=== PATIENT | female | born 1980 | race Caucasian/White ===

== ENCOUNTER 2021-10-17 09:59 | Emergency (ER) | payer OTHER, SELFPAY ==
--- NOTE | ~2021-10-17 | XR_ITS ---
EXAMINATION: XR chest 1V portable 10/17/2021 11:41 INDICATION: Covid infection 2 weeks ago. Weakness. PROCEDURE: 2 view chest COMPARISON: No prior studies for comparison. FINDINGS: The lungs are clear. The cardiomediastinal silhouette is within normal limits. There are no pleural effusions. There is no pneumothorax suspected. IMPRESSION: 1: NO ACUTE CARDIOPULMONARY DISEASE. Reviewed, dictated and finalized at location A. NICAL SUPPORT ENGINEER
[2021-10-17 10:05] VITALS: BP 124/82; PULSE 97; RESP 17; TEMP 36.6; O2SAT 100
--- NOTE | 2021-10-17 11:18 | ECG_ITS ---
Measurements Intervals [place] Rate: 80 P: 41 UT: 124 QRS: 45 QRSD: 89 T: 29 QT: 350 QTc: 406 Interpretive Statements SINUS RHYTHM NORMAL ECG Electronically Signed On 10-17-2021 18:09:14 ROLL SCALE WORKER by Mekhi Swanson D.O.
--- NOTE | 2021-10-17 11:28 | ED.WEAKNESS ---
HPI - Weakness General Chief complaint: Weakness <America Kaur PA-C - Last Filed: 10/17/21 13:45> Stated complaint: fatigue <MARK Dunbar Last Filed: 10/17/21 13:45> Time Seen by Provider: 10/17/21 10:29 <America Kaur PA-C - Last Filed: 10/17/21 13:45> Source: patient <MARK Dunbar Last Filed: 10/17/21 13:45> Mode of arrival: ambulatory <MARK Dunbar Last Filed: 10/17/21 13:45> Limitations: no limitations <MARK Dunbar Last Filed: 10/17/21 13:45> History of Present Illness HPI Narrative: This is a 40-year-old female that presents to the emergency department for generalized weakness. Reports she was diagnosed with coronavirus 2 weeks ago. She is not vaccinated. She was treated with albuterol and a steroid. This did relieve her chest discomfort and some of her shortness of breath. She has continued to be very fatigued. Does also still report a mild cough. Denies fever, chest pain, or lower extremity edema. <MARK Dunbar Last Filed: 10/17/21 13:45> Related Data Home medications: Home Medications Medication Instructions Recorded Confirmed albuterol sulfate INHALATION 10/17/21 10/17/21 benzonatate mg PO 10/17/21 prednisone 10/17/21 <America Kaur PA-C - Last Filed: 10/17/21 13:45> Allergies/Adverse reactions: Allergies Allergy/AdvReac Type Severity Reaction Status Date / Time guaifenesin Allergy Palpitation Verified 10/17/21 11:13 s Penicillins Allergy Unknown Verified 10/17/21 11:13 <MARK Dunbar Last Filed: 10/17/21 13:45> Review of Systems Review of Systems: CONSTITUTIONAL: Denies fever CARDIOVASCULAR: Denies chest pain, or edema. RESPIRATORY: Reports cough and dyspnea. NEUROLOGIC: Reports generalized weakness. <MARK Dunbar Last Filed: 10/17/21 13:45> All systems reviewed & are unremarkable except as noted in HPI and below <America Kaur PA-C - Last Filed: 10/17/21 13:45> [facility] Past Medical History Medical History: Medical History (Updated 10/17/21 @ 13:45 by America Kaur PA-C) No active medical problems <America Kaur PA-C - Last Filed: 10/17/21 13:45> Social History Social History: Social History (Updated 10/17/21 @ 11:31 by America Kaur PA-C) Smoking status: Never smoker <America Kaur PA-C - Last Filed: 10/17/21 13:45> Exam Narrative: GENERAL: Well-appearing, well-nourished, and in no acute distress. HEAD: Normocephalic, atraumatic. EYES: EOMI. ENT: Nares clear, no rhinorrhea or epistaxis. Mucous membranes moist. Oropharynx without tonsillar hypertrophy exudate or other lesions. Bilateral TMs pearly kenny non-bulging NECK: Supple. No adenopathy or masses. CHEST: Clear to auscultation. No respiratory distress. No wheezes rales or rhonchi HEART: Regular rate and rhythm. No murmur heard. Normal peripheral pulses. EXTREMITIES: Normal range of motion. No edema. SKIN: Warm, dry, no rash. NEURO: No focal deficits. Alert and oriented x3. PSYCH: Normal mood and affect <America Kaur PA-C - Last Filed: 10/17/21 13:45> Course FIELD INSPECTOR/PA Physician Supervision I did not see this patient nor was the care plan discussed with me. I was available for evaluation and consultation, I agree with the documentation <Erik Laboy MD - Last Filed: 10/17/21 13:48> Vital Signs Vital signs: Vital Signs Temperature 36.6 C 10/17/21 10:05 Pulse Rate 97 10/17/21 10:05 Respiratory Rate 17 10/17/21 10:05 Blood Pressure 124/82 10/17/21 10:05 Pulse Oximetry 100 10/17/21 10:05 Temperature 36.6 C 10/17/21 10:05 Pulse Rate 77 10/17/21 13:31 Respiratory Rate 15 10/17/21 13:31 Blood Pressure 116/83 10/17/21 13:31 Pulse Oximetry 98 10/17/21 13:31 <America Kaur PA-C - Last Filed: 10/17/21 13:45> Vital Signs Temperature 36.6 C 10/17/21 10:05 Pulse Rate 97 10/17/21 10:0
[2021-10-17 11:55] LABS: Basophils Percent Auto 0.1 % (0.2-1.2); Hemoglobin 14.2 g/dL (12.0-15.0); Immature Granulocyte Absolute 0.03 K/mm3 (0.00-0.031); Immature Granulocyte Percent A 0.4 % (0-0.5); Lymphocytes Percent Auto 8.3 % (18.3-44.2); Mean Corpuscular Volume 90.9 fl (80-100); Mean Platelet Volume 9.3 fl (7.4-10.4); Monocytes Absolute Auto 0.2 K/mm3 (0.1-0.6); Monocytes Percent Auto 2.9 % (2.6-8.5); Neutrophils Absolute Auto 6.4 K/mm3 (1.3-6.7); Neutrophils Percent Auto 88.3 % (45.5-73.1); Platelet Count Result 311 k/mm3 (150-375); Red Blood Count 4.73 M/mm3 (4.2-5.4); White Blood Count 7.2 K/mm3 (4.5-10.0)
[2021-10-17 12:01] VITALS: BP 133/82; PULSE 86; RESP 16; O2SAT 99
[2021-10-17 12:05] LABS: Prothrombin Time 13.3 Seconds (11.1-14.7)
[2021-10-17 12:06] LABS: Partial Thromboplastin Time 26.2 SECONDS (22.3-36.8)
[2021-10-17 12:08] LABS: D Dimer 0.35 ug/mL (<0.48)
[2021-10-17 12:09] LABS: Lactic Acid Reflex 1.5 mmol/L (0.7-2.1)
[2021-10-17 12:11] LABS: Alanine Aminotransferase 32 U/L (4-35); Albumin Level 4.9 g/dL (3.5-5.1); Alkaline Phosphatase 65 U/L (38-126); Anion Gap 8 mmol/L (8-16); Aspartate Amino Transferase 30 U/L (14-36); Blood Urea Nitrogen 5 mg/dL (7-17); CRP < 0.5 mg/dL (<1.0); Calcium 9.3 mg/dL (8.4-10.2); Carbon Dioxide 26 mmol/L (22-30); Chloride 106 mmol/L (98-107); Estimated CRCL calculation 75 ml/min; Estimated Glomerular Filt Rate > 60; Glucose 111 mg/dL (65-110); Lactate Dehydrogenase 387 U/L (313-618); Potassium 3.8 mmol/L (3.4-5.0); Sodium 140 mmol/L (137-145)
[2021-10-17 13:23] LABS: Thyroid Stimulating Hormone Reflex 0.678 uIU/mL (0.465-4.68)
[2021-10-17 13:31] VITALS: BP 116/83; PULSE 77; RESP 15; O2SAT 98
[2021-10-17 14:15] VITALS: BP 117/79; PULSE 80; RESP 16; O2SAT 98
== END 2021-10-17 14:20 | disposition home or self-care (01) ==
PROVIDERS: Physician Assistant; Emergency Provider Emergency Medicine
DX: R53.1 Weakness (principal); Z86.16 Personal history of COVID-19
CPT/HCPCS: 36415; 71045; 80053; 82728; 83605; 83615; 84443; 85025; 85380; 85610; 85730; 86140; 93005; 99284

== ENCOUNTER 2022-04-21 00:27 | Day surgery (SDC) | payer OTHER, SELFPAY ==
[2022-04-14 10:59] VITALS: BMI 26.6
--- NOTE | 2022-04-14 11:04 | PC.NURSE ---
Report to the Outpatient Waiting Room, entrance under the green pavilion located off [facility], at time 1230 on date 04/21/22. OR Time: 1430. - You and your visitor will be asked a series of questions to screen for COVID 19 for your protection. - Only one visitor is allowed at this time. - The patient visitor is requested to leave or wait in car when not with patient. - A mask is required within the hospital. Patients may have clear liquids (water, carbonated beverages, clear teas, apple juice) until 3 hours prior to surgery with a maximum of 20 ounces. - No food from midnight until time of surgery Take the following medications with a SIP of water the morning of surgery: NONE Medications to discontinue per physician: VITAMINS/SUPPLEMENTS Date to take last dose: 04/17/22 Please no make-up, nail indonesian, hairspray, perfume, deodorant, or body powder the day of surgery. No jewelry (including any body piercings) or valuables the day of surgery, leave them at home. Please take a shower or bath the night before, or the morning of, surgery with an antibacterial soap. Wear comfortable, loose fitting clothing. - Jewelry must be removed prior to entering the operating room. Rings and piercings that are not removed may be cut off. - The hospital will not accept responsibility for valuables. - Please leave all valuables, including medications, at home the day of surgery. If you are going home after surgery, a licensed courtesy van driver must drive you home. - NO public transportation without another adult. - We recommend that an adult stay with you for 24 hours following discharge. - We also recommend that you do not drive, make important decision, drink alcoholic beverages, or take any drugs that were not prescribed by your health care provider for at least 24 hours after your discharge time. Follow any additional instructions given to you from your surgeon. If you or anyone in your household have experienced Covid symptoms in the past week, please notify your surgeon or the nurse liaison at the phone number below for possible testing. Telephone instructions given to PT - MICHELLE FUENTES and asked if any additional questions and then verbalized understanding. Patient advised to call surgeon office or pre surgery nurse liaison [phone] if any additional questions.
--- NOTE | 2022-04-21 11:46 | PM.IMHP ---
H&P: HPI History of Present Illness Date/Time: 04/21/22 11:46 Chief Complaint: Heavy periods Narrative: 41 y/o who is finished with childbearing. Her plans to have a vasectomy. Her menses occur every 30 days and last 5-7 days each, with a lot of cramping and heavy flow. She is interested in surgical managment of her problem. Review of Systems Review of Systems: All systems reviewed & are unremarkable except as noted in HPI and below PMFSH Past Medical History Medical History No active medical problems Social History Social History Years smoked: 8 Smoking status: Former smoker Tobacco type: cigarettes Smoking end date: 09/12/07 Alcohol intake: never Substance use: never Substance use type: does not use Living arrangements: with family Spiritual care concerns: No Meds Home Medications and Allergies Home Medications Medication Instructions Recorded Confirmed Type ascorbic acid (vitamin C) 500 mg 500 mg PO DAILY 04/14/22 04/14/22 History tablet (Vitamin C) zinc acetate 25 mg (zinc) capsule 25 mg PO DAILY 04/14/22 04/14/22 History Allergies Allergy/AdvReac Type Severity Reaction Status Date / Time Penicillins Allergy Mild Hives Unverified 04/14/22 10:56 guaifenesin Allergy Palpitation Verified 04/14/22 10:56 s Exam Const: Orientation/consciousness: patient oriented x3 Other: Well-developed, well-nourished female in no acute distress. Neck: Thyroid: thyroid normal Lymphatic: no lymphadenopathy noted (in neck, axilla or inguinal nodes) Resp: Effort & Inspection: normal respiratory effort Auscultation: clear to auscultation bilaterally Cardio: Rate: regular rate Rhythm: regular rhythm Heart sounds: S1 normal heart sound present and S2 normal heart sound present GI: Other: ABD: Soft, nontender, nondistended. No guarding or rebound tenderness. No hepatosplenomegaly. : General: Yes no CVA tenderness Other: External genitalia: normal female hair distribution, without lesion. Urethral meatus: no lesion, non prolapsed. Bladder: no mass, nontender Vagina: well-estrogenized, without lesion or discharge. No cystocele or rectocele. Cervix: no lesion or discharge. Uterus: small, anteverted, freely mobile, nontender Adnexa: no mass or tenderness. Anus/perineum: no lesions, nontender Back/Spine/Pelvis: Back: no CVA tenderness Skin: General skin exam: normal color and no rashes or lesions noted Neuro: General: patient oriented x3 Extrem: Other: Extremities: nontender with no edema Psych: Mental Status: mental status grossly normal Affect: normal affect Assessment and Plan Assessment and plan (1) Menorrhagia: Code(s): N92.0 - Excessive and frequent menstruation with regular cycle Status: Acute Assessment and Plan: A: Menorrhagia. P: We have reviewed medical as well as surgical management options. She is interested in hysteroscopy, dilation and sharp curettage, and endometrial ablation. She understands risks of surgery to include risks of anesthesia, risks of pain, infection, bleeding, blood products, thromboembolic phenomena and damage to adjacent structures such as bowel, bladder, ureters, blood vessels and nerves. She understands endometrial ablation is not sufficient for contraception, and that pregnancies conceived afterward could be risky. She understands all these risks and elects to proceed with surgery.
[2022-04-21] MEDS: ACETAMINOPHEN 500 MG TABLET 1000 MG PO (12:38)
--- NOTE | 2022-04-21 13:10 | P.PNAN_ITS ---
Anes - Initial Pre Proc Eval Procedure: Operation Date: 04/21/22 14:30 Proposed Procedures p Hysteroscopy, Dilation and Curettage, Lissy Endometrial Ablation - Gee Peng MD Date/Time: 04/21/22 13:10 Surgeon: Gee Peng MD Pre Op Diagnosis: Irrg Bleeding Patient Data Age: 41 Gender: F Height: 1.75 m Weight: 82.8 kg Allergies Allergy/AdvReac Type Severity Reaction Status Date / Time Penicillins Allergy Mild Hives Verified 04/21/22 12:38 guaifenesin Allergy Palpitation Verified 04/21/22 12:38 s Home Medications Medication Instructions Recorded Confirmed Type ascorbic acid (vitamin C) 500 mg 500 mg PO DAILY 04/14/22 04/21/22 History tablet (Vitamin C) zinc acetate 25 mg (zinc) capsule 25 mg PO DAILY 04/14/22 04/21/22 History Patient hx anesthesia problems: none Family hx anesthesia problems: none Results Review: All pre-operative results and documents have been reviewed as part of the pre- operative evaluation. [facility] Past Medical History Medical History No active medical problems Social History Social History Years smoked: 8 Smoking status: Former smoker Tobacco type: cigarettes Smoking end date: 09/12/07 Alcohol intake: never Substance use: never Substance use type: does not use Living arrangements: with family Spiritual care concerns: No Anes - Eval Final PreProcedure Day of Procedure 04/21/22 13:10 Patient weight: overweight Airway: Mallampati scale class II ASA classification: II Anesthesia type and monitoring: general GIVS and standard monitoring Results Review: All pre-operative results and documents have been reviewed as part of the pre- operative evaluation. Informed Consent: The patient's anesthetic plan and its attendant risks and benefits were discussed with the patient/family/POA. Questions were solicited and answers provided to the satisfaction of the patient/family/POA.
[2022-04-21 13:30] VITALS: BP 116/74; PULSE 74; RESP 16; TEMP 37.1; O2SAT 100
[2022-04-21] MEDS: LACTATED RINGERS 1,000 ML 30 ML IV CONT (13:34)
--- NOTE | 2022-04-21 14:05 | WPDHPUPDATE1 ---
History and Physical Update Update Date/Time: 04/21/22 14:05 History and Physical has been reviewed, including an updated exam of the patient. There are NO changes in the patient's condition. Risks, benefits, and alternatives have been discussed and questions answered. Patient agrees to proceed with procedure.
--- NOTE | 2022-04-21 14:36 | W.PM.PROC2 ---
Procedure Note - Detailed Date of Procedure 04/21/22 Pre-op Diagnosis Menorrhagia Post-op Diagnosis Same Procedure Performed Hysteroscopy Dilation and sharp curettage Endometrial ablation Surgeon eGe Peng MD Anesthesia MAC and Local (1% lidocaine) Findings Uterus sounded to a depth of 10.5 cm with a cervical length of 3.5 cm. Both tubal ostia seen. Thick endometrial tissue. Also some irregularity of the contour of the endometrial cavity. Description of Procedure The patient was taken to the operating room where she was prepared and draped in the usual sterile fashion in the dorsal lithotomy position. The bladder was drained with a red rubber catheter. A sterile speculum was placed into the vagina. The anterior lip of the cervix was grasped with single-tooth tenaculum. Ten mL of 1% lidocaine was administered in a paracervical block. The cervix was then gently dilated using Hegar dilators until an 8 mm dilator could be passed. Hysteroscopy was performed using sterile saline as a distention medium. Findings are as noted above. Sharp curettage was then performed, and endometrial curettings were collected on a Telfa pad and passed off to be sent to pathology. Finally, the the Lissy device was advanced and endometrial ablation commenced without difficulty. The device was withdrawn and a second look was taken using the hysteroscope. Excellent coverage of the endometrial cavity was noted. The tenaculum was removed. Hemostasis was excellent. Sponge, lap, needle and instrument counts were correct. The patient was awakened and taken to the recovery room in stable condition. I was present and scrubbed through the entire procedure. Implants None Estimated Blood Loss 5 Drains No Packing No Pathology Yes (Endometrial curettings) Complications None Condition Stable Disposition PACU
[2022-04-21 14:40] VITALS: BP 127/76; PULSE 104; RESP 16; O2SAT 100
[2022-04-21 15:10] VITALS: BP 119/78; PULSE 70; RESP 16; O2SAT 100
== END 2022-04-21 15:25 | disposition home or self-care (01) ==
PROVIDERS: PCP Physician Assistant; Visit Provider Obstetrics & Gynecology
PROC: 0U5B8ZZ Destruction of Endometrium, Via Natural or Artificial Opening Endoscopic (ICD-10-PCS; CPT 58563; principal; 2022-04-21 14:30)
DX: N92.0 Excessive and frequent menstruation with regular cycle (principal); Z87.891 Personal history of nicotine dependence
CPT/HCPCS: 58563; 88305; A9270; J2250; J2405; J2704; J3010; J7030; J7120

== ENCOUNTER 2024-06-11 11:10 | Outpatient (CLI) | payer BC, SELFPAY ==
--- NOTE | 2024-06-11 | ECG_ITS ---
Test Date: 2024-06-11 11:55:02 Measurements Intervals [place] Rate: 78 P: 29 NE: 131 QRS: 36 QRSD: 88 T: 29 QT: 371 QTc: 424 Interpretive Statements SINUS RHYTHM NORMAL ECG No previous ECG available for comparison Electronically Signed On 06-11-2024 13:44:30 CDT by Mekhi Swanson D.O.
== END 2024-06-11 11:11 | disposition home or self-care (01) ==
LOC: ANHCARD 11:31
PROVIDERS: PCP Family Medicine; Visit Provider Physician Assistant
DX: R07.89 Other chest pain (principal)
CPT/HCPCS: 93005

== ENCOUNTER 2024-06-20 13:15 | Outpatient (CLI) | payer BC, SELFPAY ==
--- NOTE | 2024-06-20 | ECHO_ITS ---
Patient Info Name: Africa Jenkins Age: 43 years : 1980 Gender: Female Ht: 69 in Wt: 190 lbs BSA: 2.07 m2 HR: 65 bpm BP: 135 / 89 mmHg Heart Rhythm: Sinus Rhythm Technical Quality: Good Exam Date: 06/20/2024 1:48 PM Exam Location: Echo Lab Patient Status: Outpatient Admit Date: 06/20/2024 Staff Ordering Physician: DanielArabella PA-C Information Specialist: Caroline Damon RDCS Attending Provider: DanielArabella PA-C Exam Type: CA echo doppler color flow Study Info Indications - palpatation Complete two-dimensional, color flow and Doppler transthoracic echocardiogram is performed. Summary 1. Complete two-dimensional, color flow and Doppler transthoracic echocardiogram is performed. 2. Left ventricular chamber dimension is normal. 3. Left ventricular systolic function is normal, estimated at 60-65%. 4. The left ventricular diastolic function is normal. 5. E/e' 6 is not elevated. 6. No pulmonary hypertension, estimated pulmonary arterial systolic pressure is 34 mmHg. Left Ventricle E/e' 6 is not elevated. Left ventricular chamber dimension is normal. Left ventricular systolic function is normal, estimated at 60-65%. The left ventricular diastolic function is normal. Right Ventricle Right ventricular chamber dimension is normal. Right ventricular systolic function is normal. Left Atria Left atrial chamber dimension is normal. Right Atria Right atrial chamber dimension is normal. Aortic Valve The aortic valve is trileaflet. There is no aortic valve stenosis. There is no aortic valve regurgitation. Pulmonic Valve There is no pulmonic regurgitation. Mitral Valve There is no mitral valve stenosis. There is no mitral valve regurgitation. Tricuspid Valve There is no tricuspid valve regurgitation. No pulmonary hypertension, estimated pulmonary arterial systolic pressure is 34 mmHg. Pericardium/Pleural There is trivial pericardial effusion. Inferior Vena Cava Normal inferior vena cava with >50% collapse upon inspiration consistent with normal right atrial pressure, 5 mmHg. Aorta The aortic root size at the sinus of Valsalva is normal. Left Ventricular Outflow Tract Name Value Normal LVOT 2D LVOT Diameter 1.8 cm LVOT Doppler LVOT Peak Gradient 3 mmHg LVOT Mean Gradient 2 mmHg LVOT VTI 18 cm LVOT VTI/AV VTI Ratio 0.8 LVOT Stroke Volume 44 ml LVOT CO 3.3 l/min LVOT CI 1.6 l/min/m2 Pulmonic Valve Name Value Normal PV Doppler PV Peak Gradient 4 mmHg Mitral Valve Name Value Normal MV Doppler
== END 2024-06-20 13:16 | disposition home or self-care (01) ==
PROVIDERS: PCP Physician Assistant; Visit Provider Physician Assistant
DX: R07.89 Other chest pain (principal)
CPT/HCPCS: 93306

== ENCOUNTER 2024-06-25 10:33 | Outpatient (CLI) | payer BC, SELFPAY ==
--- NOTE | 2024-06-25 | EST_ITS ---
Patient Info Name: Africa Jenkins Age: 43 years : 1980 Gender: Female Ht: 69 in Wt: 200 lbs BSA: 2.12 m2 HR: 76 bpm BP: 122 / 80 mmHg Heart Rhythm: Sinus Rhythm Exam Date: 06/25/2024 10:58 AM Exam Location: Echo Lab Patient Status: Outpatient Admit Date: 06/25/2024 Staff Ordering Physician: Dion, Arabella FLORES Attending Provider: Dion, Arabella FLORES Exercise Technologist: Valerie Tuttle CT Exercise Physician: Mekhi Swanson DO Exam Type: CA stress test treadmill Study Info Indications R00.2 - Palpitations A treadmill exercise stress test was performed. Summary 1. 1. Negative Gee exercise stress test for ischemic ST changes by ECG criteria. 2. 2. Good functional capacity, achieving 10 METs of workload. 3. 3. Appropriate HR response to exercise. 4. 4. Appropriate HR recovery at 1 minute post exercise. 5. 5. No imaging with stress testing. 6. 6. Patient informed of the above results. Protocol: Gee Stress ECG Details Stage: REST Duration (min): 0 min : 52 sec Speed (mph): 0.0 Grade (%): 0 HR (bpm): 84 SBP (mmHg): 122 DBP (mmHg): 80 METS: --- Stage: REST Duration (min): 5 min : 14 sec Speed (mph): 0.0 Grade (%): 0 HR (bpm): 88 SBP (mmHg): 122 DBP (mmHg): 80 METS: --- Stage: STAGE 1 Duration (min): 1 min : 0 sec Speed (mph): 1.7 Grade (%): 10 HR (bpm): 107 SBP (mmHg): 122 DBP (mmHg): 80 METS: --- Stage: STAGE 1 Duration (min): 2 min : 0 sec Speed (mph): 1.7 Grade (%): 10 HR (bpm): 113 SBP (mmHg): 122 DBP (mmHg): 80 METS: --- Stage: STAGE 1 Duration (min): 3 min : 0 sec Speed (mph): 1.7 Grade (%): 10 HR (bpm): 113 SBP (mmHg): 146 DBP (mmHg): 77 METS: --- Stage: STAGE 2 Duration (min): 1 min : 0 sec Speed (mph): 2.5 Grade (%): 12 HR (bpm): 129 SBP (mmHg): 146 DBP (mmHg): 77 METS: --- Stage: STAGE 2 Duration (min): 2 min : 0 sec Speed (mph): 2.5 Grade (%): 12 HR (bpm): 136 SBP (mmHg): 165 DBP (mmHg): 78 METS: --- Stage: STAGE 2 Duration (min): 3 min : 0 sec Speed (mph): 2.5 Grade (%): 12 HR (bpm): 141 SBP (mmHg): 165 DBP (mmHg): 78 METS: --- Stage: STAGE 3 Duration (min): 1 min : 0 sec Speed (mph): 3.4 Grade (%): 14 HR (bpm): 151 SBP (mmHg): 176 DBP (mmHg): 82 METS: --- Stage: STAGE 3 Duration (min): 2 min : 0 sec Speed (mph): 3.4 Grade (%): 14 HR (bpm): 155 SBP (mmHg): 176 DBP (mmHg): 82 METS: --- Stage: STAGE 3 Duration (min): 2 min : 0 sec Speed (mph): 3.4 Grade (%): 14 HR (bpm): 155 SBP (mmHg): 176 DBP (mmHg): 82 METS: --- Stage: RECOVERY Duration (min): 0 min : 59 sec Speed (mph): 0.0 Grade (%): 0 HR (bpm): 125 SBP (mmHg): 178 DBP (mmHg): 79 METS: --- Stage: RECOVERY Duration (min): 1 min : 59 sec Speed (mph): 0.0 Grade (%): 0 HR (bpm): 107 SBP (mmHg): 178 DBP (mmHg):
== END 2024-06-25 10:34 | disposition home or self-care (01) ==
PROVIDERS: PCP Physician Assistant; Visit Provider Physician Assistant
DX: R07.89 Other chest pain (principal)
CPT/HCPCS: 93017

== ENCOUNTER 2024-10-12 09:12 | Outpatient (CLI) | payer OTHER, SELFPAY ==
--- NOTE | ~2024-10-12 | MM_ITS ---
EXAMINATION: MM screening leanna BI w jorje HISTORY: Screening TECHNIQUE: Craniocaudal and mediolateral oblique 3-D tomosynthesis images were obtained and synthetic 2-D images were generated. CAD analysis was submitted and interpreted. COMPARISON: No prior mammogram is available for comparison at this institution. BREAST PARENCHYMAL COMPOSITION: Not dense: There are scattered areas of fibroglandular density. FINDINGS: There is no evidence of suspicious mass, calcification, or architectural distortion to sugg est malignancy in either breast. There has been no suspicious interval change. IMPRESSION: 1. No mammographic evidence of malignancy. 2. Recommend routine screening mammography in one year. BI-RADS Category 1: Negative Reviewed, dictated and finalized at location A. MIXER
--- OUTSIDE RECORDS SUMMARY | 2024-10-12 09:32 | XMS_ITS | Data Portability ---
Author Organization [facility] Address [address] [place] [address] Care Team Providers Care Nurse Paralegal Name Role Phone ARABELLA SINGH Primary Care Provider Unavailab le Assessment No assessment recorded. Plan of Treatment Reminders Order Date Submit Date Provider Last Modified By Organization Details Last Modified Time Details Appointments None recorded. Lab TSH + free T4, serum 2023 024 [place], [address], Abhishek Hoskins, [place], [address], 4 09:28:40 insulin, serum 2023 024 [facility], [address], Abhishek Hoskins, [place], [address], 4 16:27:10 T3, free, serum or plasma 2023 024 [facility], [address], [place], [address], 4 16:27:10 noninvasiv e colorectal cancer DNA + occult blood screening, QL, stool 2023 024 [facility] (Cologuard Orders Only), [address], [address], [place], [address], 4 18:45:40 lipid panel, serum 2023 024 [facility], [address], Abhishek Hoskins, [place], [address], 4 16:27:09 CMP, serum or plasma 2023 024 [facility], [address], Abhishek Hoskins, [place], [address], 4 16:27:09 HbA1c (hemoglobi n A1c), blood 2023 024 [facility], [address], Abhishek Hoskisn, [place], [address], 4 16:27:09 iron + TIBC + ferritin, serum 2023 024 [facility], [address], Abhishek A, [place], [address], 4 09:28:40 CBC w/ auto diff 2023 024 [facility], [address], Abhishek A, [place], [address], 4 16:27:09 vitamin B12 + folate, serum or blood 2023 024 [facility], [address], Abhishek A, [place], [address], 4 16:27:[address] referral - trivial pericardia l effusion noted on Jun ECHO. pt remains symptomati c. f/u ECHO ordered to re-eval 2024 025 [facility], [address], [address], [place], [address], 5 12:27:04 Procedures None recorded. Surgeries None recorded. Imaging US, echocardio gram, transthora cic, complete, w/ color flow - NISHANT scheduling if possible need prior to planned diagnostic colonoscop y that is Jun 26. 2023 024 [facility] ([facility]), [address], [place], [address], 4 16:40:41 exercise stress test - NISHANT scheduling if possible need prior to planned diagnostic colonoscop y that is Jun 26. 2023 024 [facility] ([facility]iology [facility]), [address], [place], [address], 4 14:36:40 electrocar diogram 2023 024 [facility] ([facility]), [facility] [address] [place] [address], [phone], 4 21:00:08 US, echocardio gram, transthora cic, complete, w/ color flow 2024 025 [facility] ([facility]), [address] [place] [address] [place] [address], [id number], 5 05:00:25 Medication Orders naproxen 500 mg tablet 2024 025 [id number], [address] [place] [address], [id number], 5 18:04:17 Patient TargetsNo targets recorded. Patient InstructionsNo instructions recorded. 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 pt remains symptomatic. f/u ECHO ordered to re-eval Referring Physician: Arabella Singh, Internal Medicine, Encounter Date: 09/14/2024 Results Created Date Observation Date Name Description Value Unit Range Abnormal Flag Note LastModifiedBy Organization Detail LastModifiedTime 05/07/20 24 05/07/2024 COLOG UARD cologuard result reportable Positi ve negati ve abnormal POSIT JIMMY TEST RESUL T. A posit jimmy Colog uard resul t shoul d be follo wed with a colon oscop y or visua l exami natio n of the colon . The jeanne l value (refe rence range ) for this assay is negat jimmy. TEST DESCR IPTIO N: [place] site algor ithmi c yael sis of stool DNA-b darian casanova with hemog lobin immun oassa y. Quant itati ve value s of indiv idual bioma rkers are not repor table and are not assoc iated with indiv idual bioma rker resul t refer ence range s. Colog uard is inten ded for color ectal cance r scree wallace of adult s of eithe r sex, 45 years or older , who are at [facility] for color ectal cance r (CRC) . Colog uard has been appro keke for use by the U.[place]. FDA. The perfo rmanc e of Colog uard was estab lishe d in a cross secti onal study of [facility] adult s aged 50-84 . Colog uard perfo rmanc e in patie nts ages 45 to 49 years was estim ated by sub-g roup yael sis of near- age group s. Colon oscop ies perfo rmed for a posit jimmy resul t may find as the most clini stephanie signi don t lesio n: color ectal cance r [4.0% ], advan hema adeno ma (incl uding sessi le dinh jaron polyp s great er than or equal to 1cm diame ter) [20%] or non- advan hema adeno ma [31%] ; or no color ectal neopl dalila [45%] . These estim ates are deriv ed from a prosp ectiv e cross -sect ional scree wallace study of 10,00 0 indiv idual s at [facility] risk for color ectal cance r who were scree linda with both Colog uard and colon oscop y. (Lara Liu al, N Engl J Med 2014; 370(1 4):12 86-12 97.) Colog uard may produ ce a false negat jimmy or false posit jimmy resul t (no color ectal cance r or preca ncero us polyp prese nt at colon oscop y follo w up). A negat jimmy Colog uard test resul t does not guara ntee the absen ce of CRC or advan hema adeno ma (pre- cance r). The curre nt Colog uard scree wallace inter beverley is every 3 years . ([place] Cance r Socie ty and U.S. Multi -Soci ety Task Force ). Colog uard perfo rmanc e data in a 10,00 0 patie nt pivot al study using colon oscop y as the refer ence metho d can be acces sed at the follo wing locat ion: www.e xactl abs.c om/re sults . Addit ional descr iptio n of the Colog uard test proce ss, warni ngs and preca ution s can be found at www.c ologu elinor.c om. Not Available [facility] (Cologuard Orders Only) [address], [place], [address], 05/10/2024 18:45:40 06/11/20 24 06/11/2024 elect paulette garcia am No observ ation record ed. [facility] ([facility]) [address] [place] [address] [place] [address], [phone], 06/12/2024 10:48:12 06/29/20 24 06/20/2024 US, echoc ardio gram, trans thora cic, compl ete, w/ color flow No observ ation record ed. [address] [place] [address], [address], 07/01/2024 17:22:51 07/04/20 24 06/25/2024 exerc ise stres s test No observ ation record ed. [facility] ([facility]) [address] [place] [address] [place] [address], [phone], 07/12/2024 16:49:54 Result Notes None recorded. Procedures Surgical History None recorded. Imaging Results Imaging Date Name Status LastModified by Organization Details LastModified Time 06/11/2024 electrocardiogram completed [facility] (Cardiology & Em[facility]) [address], [address], 06/12/2024 10:48:12 06/20/2024 US, echocardiogram, transthoracic, complete, w/ color flow completed [facility] [address], [address], 07/01/2024 17:22:51 06/25/2024 exercise stress test completed [facility] (Cardiology & Emg) [address], [address], 07/12/2024 16:49:54 Procedure Notes None recorded. Medical Equipment None Reported. Allergies Allergen ID Allergen Name Allergen Category Reaction Reaction Severity Criticality Documentation Date Start Date Code Code System Note Provider Name and Address Organization Details Recorded Time [id number] Product containin g penicilli n and antibioti c (product) medicatio n vomiting Not available Not available 12/19/2023 57485 05 SNOMED Not Available Not Available Not Available Medications Name Sig Start Date Stop Date Status Note LastModified by Organization Details LastModified Time cefuroxime axetil 500 mg tablet TAKE 1 TABLET BY MOUTH EVERY 12 HOURS FOR 10 DAYS 06/08 completed Not Available Not Available Not Available naproxen 500 mg tablet Take 1 tablet twice a day by oral route with meal(s). 2024 active Not Available Not Available Not Avai lable Vitals Date Recorded Body weight Provider Name an d Address Organization Details Last Updated DateTime 12/19/2023 44776.4 g SARAH [place] [facility] 12/19/2023 11:55:06 Date Recorded Body mass index (BMI) Body height Provider Name and Address Organization Details Last Updated DateTime 12/19/2023 30.6 kg/m2 176.53 cm SARAH Madrid [facility] 04/2024 11:55:13 Date Recorded Heart rate Provider Name an d Address Organization Details Last Updated DateTime 12/19/2023 92 /min SARAH Madrid [facility] 12/19/2023 12:00:07 Date Recorded Oxygen saturation Oxygen saturation in Arterial blood by Pulse oximetry Provider Name and Address Organization Details Last Updated DateTime 12/19/2023 98 % 98 % Jo Bates [place] [facility] 12/19/2023 12:00:09 Date Recorded Body temperature Provider Name a nd Address Organization Details Last Updated DateTime 12/19/2023 97.9 [degF] Jo Bates MA [facility] 12:00:13 Date Recorded Body height Provider Name an d Address Organization Details Last Updated DateTime 06/08/2024 176.53 cm Katia Baron [place] [facility] 2023 10:44:49 Date Recorded Body mass index (BMI) Body weight Provider Name and Address Organization Details Last Updated DateTime 06/08/2024 29.1 kg/m2 75362.83 g Katia Baron [place] [facility] 06/08/2024 10:51:00 Date Recorded Respiratory rate Provider Name a nd Address Organization Details Last Updated DateTime 06/08/2024 18 /min Katia Baron [place] [facility] 06/08/2024 10:51:02 Date Recorded Oxygen saturation Oxygen saturation in Arterial blood by Pulse oximetry Provider Name and Address Organization Details Last Updated DateTime 06/08/2024 97 % 97 % Katia Baron [place] [facility] 06/08/2024 10:53:27 Date Recorded Heart rate Provider Name an d Address Organization Details Last Updated DateTime 06/08/2024 88 /min Katia Baron [place] [facility] 2023 10:53:31 Date Recorded Body height Provider Name an d Address Organization Details Last Updated DateTime 09/14/2024 176.53 cm Katia Baron MA [facility] 2024 11:53:51 Date Recorded Body mass index (BMI) Body weight Provider Name and Address Organization Details Last Updated DateTime 09/14/2024 29.7 kg/m2 19124.84 g Katia Baron MA [facility] 09/14/2024 11:55:21 Date Recorded Oxygen saturation Oxygen saturation in Arterial blood by Pulse oximetry Provider Name and Address Organization Details Last Updated DateTime 09/14/2024 99 % 99 % Katia Baron [place] [facility] 09/14/2024 11:57:08 Date Recorded Heart rate Provider Name an d Address Organization Details Last Updated DateTime 09/14/2024 99 /min Katia Baron [place] [facility] 2024 11:57:12 Date Recorded Systolic blood pressure Diastolic blood pressure Provider Name and Address Organization Details Last Updated DateTime 12/19/2023 110 mm[Hg] 80 mm[Hg] Jo Bates [place] [facility] 12/19/2023 11:59:09 Date Recorded Systolic blood pressure Diastolic blood pressure Provider Name and Address Organization Details Last Updated DateTime 12/19/2023 120 mm[Hg] 80 mm[Hg] DARION Arzate Attn: Accounting[address] [place], [address], [place] [facility] 12/19/2023 12:46:24 Date Recorded Systolic blood pressure Diastolic blood pressure Provider Name and Address Organization Details Last Updated DateTime 06/08/2024 118 mm[Hg] 72 mm[Hg] Katia Baron [place] [facility] 06/08/2024 10:54:47 Date Recorded Systolic blood pressure Diastolic blood pressure Provider Name and Address Organization Details Last Updated DateTime 06/19/2024 120 mm[Hg] 80 mm[Hg] DARION Arzate Attn: [address] [place], [address], [place] [facility] 06/19/2024 09:21:11 Date Recorded Systolic blood pressure Diastolic blood pressure Provider Name and Address Organization Details Last Updated DateTime 09/14/2024 130 mm[Hg] 82 mm[Hg] Katia Baron [place] [facility] 09/14/2024 11:58:19 Date Recorded Systolic blood pressure Diastolic blood pressure Provider Name and Address Organization Details Last Updated DateTime 09/14/2024 118 mm[Hg] 84 mm[Hg] DARION Arzate Attn: [address] [place], [address], [place] [facility] 09/14/2024 12:18:00 Date Recorded Systolic blood pressure Diastolic blood pressure Provider Name and Address Organization Details Last Updated DateTime 09/14/2024 120 mm[Hg] 80 mm[Hg] DARION Arzate Attn: [address] [facility], [place], [address], [facility] 09/14/2024 12:19:21 Social History Question Answer Notes LastModified by Organizat ion Details LastModified Time Tobacco Smoking Status Never Smoker Katia Baron [facility], [facility] 06/08/2024 10:52:01 What Is Your Level Of Alcohol Consumption? None Information not available 12/19/2023 Are You Blind Or Do You Have Difficulty Seeing? No Information n ot available 06/08/2024 What Is Your Level Of Caffeine Consumption? None Information not available 12/19/2023 In The 14 Days Before Symptom Onset, Have You Had Close Contact With A Laboratory-confirm ed COVID-19 While That Case Was Ill? No Information n ot available 06/08/2024 In The 14 Days Before Symptom Onset, Have You Had Close Contact With A Person Who Is Under Investigation For COVID-19 While That Person Was Ill? No Information not available 06/08/2024 Have You Been To An Area Known To Be High Risk For COVID-19? No Information not available 06/08/2024 Are You Deaf Or Do You Have Serious Difficulty Hearing? No Information not available 06/08/2024 What Type Of Diet Are You Following? REGULAR Information n ot available 06/08/2024 Are There Any Guns Present In Your Home? No Information not available 06/08/2024 What Was The Date Of Your Most Recent Tobacco Screening? 09/14/2024 Information not available 09/14/2024 Do You Use Your Seat Belt Or Car Seat Routinely? Yes Information not available 06/08/2024 Do You Have Smoke And Carbon Monoxide Detectors In Your Home? Yes Information not available 06/08/2024 How Much Tobacco Do You Smoke? No Information not available 12/19/2023 Do You Use Any Illicit Or Recreational Drugs? No Information not available 12/19/2023 Do You Use Sunscreen Routinely? Yes Information not available 06/08/2024 Has Tobacco Cessation Counseling Been Provided? No Information not available 12/19/2023 How Many Years Have You Smoked Tobacco? 0 Information not available 06/08/2024 Do You Or Have You Ever Used Any Other Forms Of Tobacco Or Nicotine? No Information not available 12/19/2023 Sex: Female Functional Status Question Answer Note LastModified by Organizat ion Details LastModified Time Are you able to care for yourself? Yes Information not available 06/08/2024 What is your exercise level? Occasional Information not available 06/08/2024 Mental Status None recorded. Family History Relationship Description Onset Age of this Age Resolved Age Notes LastModified by Organization Details LastModified Time Father Malignant neoplasm of skin [email or web address] Not available 2023 12:49:58 Father Diverticulit is dmilesma Not available 2023 12:50:16 Father Heart disease [email or web address] Not available 2023 10:51:42 Mother Diverticulit is dmilesma Not available 2023 12:50:16 Sister Heart disease tcarterma Not available 2023 10:51:42 Maternal Aunt Heart disease tcarterma Not available 2023 10:51:42 Medical History Condition Response Coronary Artery Disease N Other N Atrial Fibrillation N High Blood Pressure N Depression N COPD N Blood Clots N Anxiety Disorder Y Muscle, Joint, or Bone Problems N Acid Reflux (GERD) N Cancer N Stroke N High Cholesterol N Liver Disease N Headaches N Kidney or Bladder Problems N Thyroid Problems N GI Problems N Skin Problems N Anemia Y Heart Attack (NC) N Diabetes N Seizures/Epilepsy N Asthma N Allergies Y Hepatitis N Heart Failure N Osteoporosis N Gynecological History Statement/Question Response Menses Monthly N Obstetrics History GPAL:G 0 P 0 0 0 0 Past Encounters Encounter ID Performer Location Encounter Start Date Encounter Closed Date Diagnosis/Indication Diagnosis SNOMED-CT Code Diagnosis ICD10 Code Diagnosis Note [id number] DARION Arzate [facility] - Jace Nguyen [address] [place] [address] 12/19/2023 11:40:57 12/19/2023 12:48:19 Adult health examination 950713842 Z00.00 annual wellness completed. Routine fasting labs ordered. Cholesterol screening 27 5862887 Z13.220 fasting lipids are due Diabetes nick mathisitus screening 618321248 Z13.1 screening ordered for a1c Screening for malignant neoplasm of colon 717858778 Z12.11 pt opts for cologuard screening method. Iron defic iency anemia 94002391 D50.9 screening iron studies and b12/folate ordered. Weight gain 2358669 R63. 5 screening thyroid panel and insulin. [id number] DARION Arzate [facility] [address] [place] [address] 06/08/2024 10:41:36 06/08/2024 11:48:01 Atypical chest pain 401004428 R07.89 Refer for exercise treadmill stress testing with atypical chest pain report. EKG in the office is stable. Palpitations 10781176 R0 0.2 Persistent paroxysmal palpitatio ns. Check a baseline echocardio gram with Doppler to evaluate structure and ejection fraction and chamber size. [id number] DARION Arzate [facility] [address] [place] [address] 09/14/2024 11:50:05 09/14/2024 12:24:07 Pericardial effusion 240682048 I31.39 Trivial pericardia l effusion noted on her echocardio gram this fall. We will repeat complete echo with Doppler to monitor for stability and improvemen t. Patient also would like to consult with a cardiologi st regarding this. Atypical chest pain 1025 [address]9260 R07.89 Patient has atypical chest pain is consistent with pleuritic component perhaps a pleurisy. We will trial naproxen 500 mg twice daily for 10 days to see if this brings any improvemen t in an inflammato ry type chest pain. Patient has an underlying concern for pericardit is and if she had that and if that was the underlying cause of her trivial pericardia l effusion. Health Concerns Section Related Observation LastModified by Organization Detai ls LastModified Time None Recorded Concern Status LastModified by Organization Details LastModified Time None Recorded Advance Directives Directive None Recorded Payers Encounter Date Sequence Insurance Name Policy Number Policy Whiting Covered Member ID Whiting Member ID Guarantor Name 12/19/2023 1 [place] [id number] Edison Jenkins [id number] Arfica Jenkins 06/08/2024 1 [place] [id number] Edison Jenkins [id number] Africa Jenkins 09/14/2024 1 [facility] [id number] Edison Jenkins [id number] Africa Jenkins Notes Date Note Type Note Provider Name and Address Organization Details Recorded Time 4 text/html Pt is here to establish with new PCP. no acute complaints. pt is interested in screening labs and any testing needed at her age. She has some weight gain she would like labs for and also a hx of iron deficieny anemia reported that she would like screened for now. DARION Arzate Attn: [address]ing[address] [place], [address], [facility] 01/07/2024 23:53:59 4 text/html Angina/Chest PainReported bypatient.Location:chest; radiates to the left arm Quality:pressure;heavines s Severity:moderate Duration:lasts minutes Onset/Timing:started weeks ago Context:exertional;at rest;occurs with emotional stress Alleviating Factors:nothing gives relief Aggravating Factors:worse with activity;worse with stress/emotional upset Associated Symptoms:chest discomfort;shortness of breath;exertional dyspnea;fatigue;palpitati onsNotes:discuss heart issues, states that she has noticed some pain and pressure in her chest and some irregular heart palpitations/flutters, some shortness of breath coming and going, states that it started May 24, states that this week hit has been more consistent. DARION Arzate Attn: Accounting[address] [place], [address], [facility] 06/19/2024 09:21:28 5 text/html PalpitationsReported bypatient.Notes:Patient reports she is noticing some palpation of the heart, worse at night. Patient is also reporting she has some chest pain anteriorly that is not related to any stress or anxiety or exertion. Just generalized slight discomfort which waxes and wanes. Upon reviewing her echocardiogram with her there were some trivial pericardial effusion that was noted in the body of the echo report but not in the summary. We discussed the fact that this may have been from a viral illness prior to testing. DARION Arzate Attn: Accounting[address] [place], [address], [facility] 10/07/2024 18:06:33 OBGyn Episode No OBEpisode recorded.
== END 2024-10-12 09:13 | disposition home or self-care (01) ==
LOC: ANHIMG 09:14
PROVIDERS: PCP Physician Assistant; Visit Provider Obstetrics & Gynecology
DX: Z12.31 Encounter for screening mammogram for malignant neoplasm of breast (principal)
CPT/HCPCS: 77063; 77067

== ENCOUNTER 2024-10-23 00:56 | Day surgery (SDC) | payer OTHER, SELFPAY ==
[2024-06-05 14:31] VITALS: BMI 25.9
[2024-10-08 10:59] VITALS: BMI 29.6
--- OUTSIDE RECORDS SUMMARY | 2024-10-23 00:59 | XMS_ITS | Data Portability ---
Author Organization [facility] Jennyfer [facility] Address [address] [place] [address] Care Team Providers Care Chief Of Vital Statistics Name Role Phone ARABELLA SINGH Primary Care Provider Unavailab le Assessment No assessment recorded. Plan of Treatment Reminders Order Date Submit Date Provider Last Modified By Organization Details Last Modified Time Details Appointments None recorded. Lab TSH + free T4, serum 2023 024 [facility], [address], Abhishek Hoskins, [place], [address], 4 09:28:40 insulin, serum 2023 024 [facility], [address], Abhishek Hoskins, [place], [address], 4 16:27:10 T3, free, serum or plasma 2023 024 [facility], [address], [place], [address], 4 16:27:10 noninvasiv e colorectal cancer DNA + occult blood screening, QL, stool 2023 024 [facility] (Cologuard Orders Only), [address], [address], [place], [address], 4 18:45:40 lipid panel, serum 2023 024 [facility], [address], Abhishek Hoskins, [place], [address], 4 16:27:09 CMP, serum or plasma 2023 024 [facility], [address], Abhishek Hoskins, [place], [address], 4 16:27:09 HbA1c (hemoglobi n A1c), blood 2023 024 [facility], [address], Abhishek Hoskins, [place], [address], 4 16:27:09 iron + TIBC + ferritin, serum 2023 024 [email or web address], [address], Abhishek A, [place], [address], 4 09:28:40 CBC w/ auto diff 2023 024 [facility], [address], Abhishek A, [place], [address], 4 16:27:09 vitamin B12 + folate, serum or blood 2023 024 [facility], [address], Abhishek A, [place], [address], 4 16:27:[address] referral - trivial pericardia l effusion noted on Jun ECHO. pt remains symptomati c. f/u ECHO ordered to re-eval 2024 025 [facility], [address], [address], [place], [address], 5 12:27:04 Procedures None recorded. Surgeries None recorded. Imaging US, echocardio gram, transthora cic, complete, w/ color flow - NISHANT scheduling if possible need prior to planned diagnostic colonoscop y that is Jun 26. 2023 024 [facility] (Cardiology & Emg), [address], [place], [address], 4 16:40:41 exercise stress test - NISHANT scheduling if possible need prior to planned diagnostic colonoscop y that is Jun 26. 2023 024 [facility] (Cardiology & Emg), [address], [place], [address], 4 14:36:40 electrocar diogram 2023 024 [facility] (Cardiology & Emg), [facility] [address] [place] [address], [phone], 4 21:00:08 US, echocardio gram, transthora cic, complete, w/ color flow [address] (Cardiology & Emg), [address] [place] [address] [place] [address], [address], 5 15:57:30 Medication Orders naproxen 500 mg tablet 2024 025 [id number], [address] [place] [address], [id number], 5 18:04:17 Patient TargetsNo targets recorded. Patient InstructionsNo instructions recorded. Reason for Referral [employer]ice Referral for Pe ricardial effusion trivial pericardial [...] is negat jimmy. TEST DESCR IPTIO N: [place] site algor ithmi c yael sis of [...] years or older , who are at [facility] for color ectal cance r (CRC) . Colog uard has been appro keke for use by the [place] FDA. The perfo rmanc e of Colog uard was estab lishe d in a cross secti onal study of [facility] adult s aged 50-84 . Colog uard perfo rmanc e in patie nts ages 45 to 49 years was estim ated by sub-g roup yael sis of near- age group s. Colon oscop ies perfo rmed for a posit jimmy resul t may find as the most clini stephanie signi fican t lesio n: color ectal cance r [...] of 10,00 0 indiv idual s at [facility] risk for color ectal cance [...] at www.c ologu elinor.c om. Not Available [email or web address] (Cologuard Orders Only) [address], [place], [address], 05/10/2024 18:45:40 06/11/20 24 06/11/2024 elect paulette garcia am No observ ation record ed. [facility] (Cardiology & Em[facility]) [address] [place] [address] [place] [address], [phone], 06/12/2024 10:48:12 06/29/20 24 06/20/2024 US, echoc ardio gram, trans thora cic, compl ete, w/ color flow No observ ation record ed. [address] [place] [address], [address], 07/01/2024 17:22:51 07/04/20 24 06/25/2024 exerc ise stres s test No observ ation record ed. [facility] (Cardiology & Emg) [address] [place] [address] [place] [address], [phone], 07/12/2024 16:49:54 10/12/19 25 10/12/2024 MAMMO , scree wallace, digit al, bilat eral No observ ation record ed. [email or web address] [place] [address], [place], [address], 10/12/2024 13:59:36 Result Notes None recorded. Procedures Surgical History None recorded. Imaging Results Imaging Date Name Status LastModified by Organization Details LastModified Time 06/11/2024 electrocardiogram [address] [facility] (Cardiology & Emg) [address] [place] [address], [phone], 06/12/2024 10:48:12 06/20/2024 US, echocardiogram, transthoracic, complete, w/ color flow completed [address], [address], 07/01/2024 17:22:51 06/25/2024 exercise stress test completed [facility] (Cardiology & Emg) [address] [place] [address], [phone], 07/12/2024 16:49:54 10/12/2024 MAMMO, screening, digital, bilateral completed [address], [address], 10/12/2024 13:59:36 Procedure Notes None recorded. Medical Equipment None Reported. Allergies Allergen ID Allergen Name Allergen Category Reaction Reaction Severity Criticality Documentation Date Start Date Code Code System Note Provider Name and Address Organization Details Recorded Time 852150 Product containin g penicilli n and antibioti c (product) medicatio n vomiting Not available Not available 12/19/2023 69856 05 SNOMED Not Available Not Available Not Available Medications Name Sig Start Date Stop Date Status Note LastModified by Organization Details LastModified Time cefuroxime axetil 500 mg tablet TAKE 1 TABLET BY MOUTH EVERY 12 HOURS FOR 10 DAYS 06/08 completed Not Available Not Available Not Available naproxen 500 mg tablet TAKE 1 TABLET BY MOUTH TWICE DAILY WITH MEALS active Not Available Not Available No t Available Vitals Date Recorded Body weight Body mass index (BMI) Body height Heart rate Oxygen saturation Oxygen saturation in Arterial blood by Pulse oximetry Body temperature Systolic blood pressure Diastolic blood pressure Provider Name and Address Organization Details Last Updated DateTime 4 21602.4 g 30.6 kg/m2 176.53 cm 92 /min 98 % 98 % 97.9 [degF] 110 mm[Hg] 80 mm[Hg] Jo Bates MA [facility] 4 11:59:09 Date Recorded Systolic blood pressure Diastolic blood pressure Provider Name and Address Organization Details Last Updated DateTime 12/19/2023 120 mm[Hg] 80 mm[Hg] DARION Arzate Attn: Accounting, [place], [address], [facility] 12/19/2023 12:46:24 Date Recorded Body height Body mass index (BMI) Body weight Respiratory rate Oxygen saturation Oxygen saturation in Arterial blood by Pulse oximetry Heart rate Systolic blood pressure Diastolic blood pressure Provider Name and Address Organization Details Last Updated DateTime 4 176.53 cm 29.1 kg/m2 44527.8 3 g 18 /min 97 % 97 % 88 /min 118 mm[Hg] 72 mm[Hg] Katia Baron MA [facility] 4 10:54:47 Date Recorded Body height Body mass index (BMI) Body weight Oxygen saturation Oxygen saturation in Arterial blood by Pulse oximetry Heart rate Systolic blood pressure Diastolic blood pressure Provider Name and Address Organization Details Last Updated DateTime 5 176.53 cm 29.7 kg/m2 33128.8 4 g 99 % 99 % 99 /min 130 mm[Hg] 82 mm[Hg] Katia Baron MA [facility] 5 11:58:19 Date Recorded Systolic blood pressure Diastolic blood pressure Systolic blood pressure Diastolic blood pressure Provider Name and Address Organization Details Last Updated DateTime 09/14/2024 118 mm[Hg] 84 mm[Hg] 120 mm[Hg] 80 mm[Hg] DARION Arzate Attn: Accounting ,[address] [place], [address] , [facility] 5 12:19:21 Date Recorded Systolic blood pressure Diastolic blood pressure Provider Name and Address Organization Details Last Updated DateTime 06/19/2024 120 mm[Hg] 80 mm[Hg] DARION Arzate Attn: Accounting,[address] [facility], [place], [address], [facility] 06/19/2024 09:21:11 Social History Question Answer Notes LastModified by Organizat ion Details LastModified Time Tobacco Smoking Status Never Smoker SARAH Guzmán, [facility] 06/08/2024 10:52:01 What Is Your Level Of [...] Atrial Fibrillation N High Blood Pressure N Thyroid Problems N Kidney or Bladder Problems N Depression N COPD N Blood Clots N GI Problems N Skin Problems N Anemia Y Heart Attack ([place]) N Diabetes N Anxiety Disorder Y Muscle, Joint, or Bone Problems N Seizures/Epilepsy N Acid Reflux (GERD) N Cancer N Stroke N Allergies Y Asthma N High Cholesterol N Hepatitis N Liver Disease N Headaches N Osteoporosis N Heart Failure N Gynecological History Statement/Question Response Menses Monthly N Obstetrics History GPAL:G 0 P 0 0 0 0 Past Encounters Encounter ID Performer Location Encounter Start Date Encounter Closed Date Diagnosis/Indication Diagnosis SNOMED-CT Code Diagnosis ICD10 Code Diagnosis Note [id number] DARION Arzate [facility] [place] [address] [place] [address] 12/19/2023 11:40:57 12/19/2023 12:48:19 Adult health examination 249849803 Z00.00 annual wellness completed. Routine fasting labs ordered. Cholesterol screening 27 0732373 Z13.220 fasting lipids are due Diabetes m ellitus screening 033996180 Z13.1 screening ordered for a1c Screening for malignant neoplasm of colon 754964408 Z12.11 pt opts for cologuard screening method. Iron defic iency anemia 76420742 D50.9 screening iron studies and b12/folate ordered. Weight gain 4414833 R63. 5 screening thyroid panel and insulin. [id number] DARION Arzate [employer] [address] [place] [address] 06/08/2024 10:41:36 06/08/2024 11:48:01 Atypical chest pain 178728051 R07.89 Refer for exercise treadmill stress testing with atypical chest pain report. EKG in the office is stable. Palpitations 44646186 R0 0.2 Persistent paroxysmal palpitatio ns. Check a baseline echocardio gram with Doppler to evaluate structure and ejection fraction and chamber size. [id number] DARION Arzate [employer] [address] [place] [address] 09/14/2024 11:50:05 09/14/2024 12:24:07 Pericardial effusion 627848261 I31.39 Trivial pericardia l effusion noted on her echocardio gram this fall. We will repeat complete echo with Doppler to monitor for stability and improvemen t. Patient also would like to consult with a cardiologi st regarding this. Atypical chest pain 1025 86882 R07.89 Patient has atypical chest pain is [...] [place] Member ID Guarantor Name 12/19/2023 1 [employer]: [place] [id number] Edison Jenkins [id number] Africa Jenkins 06/08/2024 [address] [facility]: (PPO) [id number] Edison Jenkins [id number] Africa Jenkins 09/14/2024 1 [employer] [id number] Edison Jenkins [id number] Africa Jenkins Notes Date Note Type [...] for now. DARION Arzate Attn: Accounting,[address] [place], [address], [facility] 01/07/2024 23:53:59 4 text/html Angina/Chest PainReported [...] more consistent. DARION Arzate Attn: Accounting,[address] [place], [address], [facility] 06/19/2024 09:21:28 5 text/html PalpitationsReported bypatient.Notes:Patient [...] to testing. DARION Arzate Attn: Accounting,[address] [place], [address], [place] [facility] 10/07/2024 18:06:33 OBGyn Episode No OBEpisode recorded.
--- NOTE | 2024-10-23 08:41 | WPDANESEPPF ---
Anes - Initial Pre Proc Eval Procedure: Operation Date: 10/23/24 11:30 Proposed Procedures p Esophagogastroduodenoscopy & Colonoscopy - Mirza Cruz MD Date/Time: 10/23/24 08:41 Surgeon: Mirza Cruz MD Pre Op Diagnosis: other fecal abn,GERD Patient Data Age: 43 Gender: F Height: 1.75 m Weight: 91 kg Allergies Allergy/AdvReac Type Severity Reaction Status Date / Time Penicillins Allergy Mild Hives Verified 10/23/24 10:25 guaifenesin Allergy Palpitation Verified 10/23/24 10:25 s Home Medications ?Medication ?Instructions ?Recorded ?Confirmed ?Type ascorbic acid (vitamin C) 500 mg 500 mg PO DAILY 04/14/22 06/05/24 History tablet (Vitamin C) zinc acetate 25 mg (zinc) capsule 25 mg PO DAILY 04/14/22 06/05/24 History omeprazole 20 mg capsule,delayed 20 mg PO DAILY 10/23/24 10/23/24 History release Patient hx anesthesia problems: none Family hx anesthesia problems: none Results Review: All pre-operative results and documents have been reviewed as part of the pre-operative evaluation. [facility] Past Medical History Medical History (Updated 10/23/24 @ 10:50 by Mirza Cruz MD) Positive colorectal cancer screening using Cologuard test GERD (gastroesophageal reflux disease) History of smoking Over weight Menorrhagia No active medical problems Social History Social History (Updated 07/27/23 @ 10:40 by Radha Ayers MA) Years smoked: 8 Smoking status: Former smoker Tobacco type: cigarettes Smoking end date: 09/12/07 Alcohol intake: never Substance use: never Substance use type: does not use Lack of Transportation: No Lack of Food: Never True Current Housing: I Have Housing Concerned About Future Housing: No Difficulty Paying Gas/Electric Bills: No Difficulty Paying for Meds: No Currently Unemployed: YES Education: Master's Degree or Higher Difficulty w/ Childcare or Family Care: No Living arrangements: with family Occupation/Education: unemployed Gender identity (if verbalized by the patient): Female Sexual Orientation (if Verbalized by the Patient): Straight or Heterosexual Spiritual care concerns: No Anes - Eval Final PreProcedure Day of Procedure 10/23/24 08:41 Patient weight: overweight Heart: regular rate and rhythm Lungs: clear to auscultation Airway: Mallampati scale class II Neurological: alert and oriented Last oral intake: >/= 8 hours ASA classification: III Emergent: no Anesthetic plan: proceed Anesthesia type and monitoring: general GIVS and standard monitoring Results Review: All pre-operative results and documents have been reviewed as part of the pre-operative evaluation. Informed Consent: The patient's anesthetic plan and its attendant risks and benefits were discussed with the patient/family/POA. Questions were solicited and answers provided to the satisfaction of the patient/family/POA.
[2024-10-23 10:27] VITALS: BP 121/88; PULSE 85; RESP 18; TEMP 36.3; O2SAT 100
[2024-10-23 10:36] LABS: BEDSIDEPREGUCG Negative (Negative)
[2024-10-23] MEDS: LACTATED RINGERS 1,000 ML 150 ML IV CONT (10:44)
--- NOTE | 2024-10-23 10:49 | PM.HPGS ---
History of Present Illness History of Present Illness Consent: Risks, benefits, and alternatives have been discussed and questions answered. Patient agrees to proceed with procedure. Chief complaint: other fecal abn,GERD Narrative: Africa Jenkins is a 43 year old female with gerd and also + cologuard Review of Systems Review of Systems: All systems reviewed & are unremarkable except as noted in HPI and below PMFSH Past Medical History Medical History (Updated 10/23/24 @ 10:50 by Mirza Cruz MD) Positive colorectal cancer screening using Cologuard test GERD (gastroesophageal reflux disease) Over weight Menorrhagia No active medical problems Social History Social History (Updated 07/27/23 @ 10:40 by Radha Ayers MA) Years smoked: 8 Smoking status: Former smoker Tobacco type: cigarettes Smoking end date: 09/12/07 Alcohol intake: never Substance use: never Substance use type: does not use Lack of Transportation: No Lack of Food: Never True Current Housing: I Have Housing Concerned About Future Housing: No Difficulty Paying Gas/Electric Bills: No Difficulty Paying for Meds: No Currently Unemployed: YES Education: Master's Degree or Higher Difficulty w/ Childcare or Family Care: No Living arrangements: with family Occupation/Education: unemployed Gender identity (if verbalized by the patient): Female Sexual Orientation (if Verbalized by the Patient): Straight or Heterosexual Spiritual care concerns: No Meds Home Medications and Allergies Home Medications ?Medication ?Instructions ?Recorded ?Confirmed ?Type ascorbic acid (vitamin C) 500 mg 500 mg PO DAILY 04/14/22 10/23/24 History tablet (Vitamin C) zinc acetate 25 mg (zinc) capsule 25 mg PO DAILY 04/14/22 10/23/24 History omeprazole 20 mg capsule,delayed 20 mg PO DAILY 10/23/24 10/23/24 History release Allergies Allergy/AdvReac Type Severity Reaction Status Date / Time Penicillins Allergy Mild Hives Verified 10/23/24 10:25 guaifenesin Allergy Palpitation Verified 10/23/24 10:25 s Vital Signs Vital Signs - 24 hr 10/23/24 10:27 Temperature 97.3 F L Pulse Rate 85 Respiratory Rate 18 Blood Pressure 121/88 Pulse Oximetry 100 Oxygen Delivery Room Air Exam Const: General: comfortable and no acute distress HENMT: Face/Nose/Sinus: Normal nares present Eyes: General: appearance normal, both eyes and all related structures Neck: Neck: no JVD Resp: Auscultation: clear to auscultation bilaterally Cardio: Rate: regular rate Rhythm: regular rhythm GI: Inspection: non-distended GI Palp: Yes Soft to palpation Skin: General skin exam: normal color Neuro: General: gait normal Speech: normal speech Extrem: General: normal to inspection Psych: Mental Status: mental status grossly normal Assessment and Plan Assessment and plan (1) GERD (gastroesophageal reflux disease): Code(s): K21.9 - Gastro-esophageal reflux disease without esophagitis Status: Acute Assessment and Plan: egd (2) Positive colorectal cancer screening using Cologuard test: Code(s): R19.5 - Other fecal abnormalities Status: Acute Assessment and Plan: colonoscopy
[2024-10-23 11:30] VITALS: BP 122/77; PULSE 84; RESP 24; O2SAT 100
--- NOTE | 2024-10-23 11:31 | SUR.OPER ---
Dr. Lyons aware that rectal polyp was not retrieved, no further orders from doctor.
[2024-10-23 11:40] VITALS: BP 118/80; PULSE 72; RESP 17; O2SAT 100
[2024-10-23 11:50] VITALS: BP 122/84; PULSE 72; RESP 17; O2SAT 100
[2024-10-23] MEDS: PROPARACAINE HCL 0.5% 15 ML OPHTH SOLN 1 DROP EACH EYE (11:59)
[2024-10-23] MEDS: ARTIFICIAL TEARS OPHTH SOLN 15 ML BOTTLE 1 DROP EACH EYE (12:09)
[2024-10-23] MEDS: DICLOFENAC SODIUM 0.1% OPHTH SOLN 2.5 ML BOTTLE 1 DROP EACH EYE (12:09)
--- NOTE | 2024-10-23 12:17 | SUR.PHASEII ---
after patient awakened from the procedure she complained of eye irriation. i spoke to Evonne BEARD and orders were given for corneal abrasion protocol. pt felt better after eye drops were administered and was discharged home. Dr. Lyons was made aware of the situation.
== END 2024-10-23 12:16 | disposition home or self-care (01) ==
PROVIDERS: Registered Nurse; PCP Physician Assistant; Referring Provider Physician Assistant; Visit Provider Internal Medicine Gastroenterology
PROC: 0DJ08ZZ Inspection of Upper Intestinal Tract, Via Natural or Artificial Opening Endoscopic (ICD-10-PCS; CPT 45378; principal; 2024-10-23 11:30)
DX: K63.5 Polyp of colon (principal); K29.70 Gastritis, unspecified, without bleeding; K21.9 Gastro-esophageal reflux disease without esophagitis; Z87.891 Personal history of nicotine dependence
CPT/HCPCS: 43239; 45385; 45390; 88305; A9270; J2704; J7120

== ENCOUNTER 2025-02-28 15:20 | Observation (INO) | payer OTHER, SELFPAY ==
[2025-02-28] VITALS (31 sets, daily range): BP systolic 114–152; BP diastolic 88–109; PULSE 84–190; RESP 9–34; TEMP 36.6; O2SAT 97–100; BMI 29.9
--- NOTE | ~2025-02-28 | XR_ITS ---
CHEST RADIOGRAPH, PA AND LATERAL CLINICAL HISTORY: CHEST PAIN . COMPARISON: 10/17/2021 TECHNIQUE: PA and lateral views of the chest. FINDINGS The cardiomediastinal silhouette is unremarkable. The lungs are clear. IMPRESSION: No focal infiltrate or effusion. Reviewed, dictated and finalized at location A.
--- OUTSIDE RECORDS SUMMARY | 2025-02-28 15:22 | XMS_ITS | Referral Summary ---
Author Organization [facility] [address] [facility] [address] Address [address] [place] [address] Care Team Providers Care Seat Cover Maker Name Role Phone Arabella Ashley Primary Care Pr ovider Encounters Date Type Department Care Team Description 02/19/2025 10:30 AM CDT Office Visit [facility] [address] [place] [address] Cristian Auguste MD Palpitations (Primary Dx) 02/12/2025 Telephone [facility] [address] [facility] [address] [place] [address] Cristian Auguste MD 02/06/2025 Telephone [facility] [address] [facility] [address] [place] [phone] Marylou Ni NP 02/06/2025 9:27 AM CDT - 02/06/2025 11:59 PM CDT Hospital Encounter [facility] [address] [place] [phone] Precordial pain; Chest pain on breathing Discharge Disposition: Discharge to home or self care 01/30/2025 9:34 AM CDT - 01/30/2025 11:59 PM CDT Hospital Encounter [facility] [address] [place] [address] Precordial pain; Chest pain on breathing Discharge Disposition: Discharge to home or self care 01/21/2025 Telephone [facility] [address] [place] [address] [place] [phone] Cristian Auguste MD 01/10/2025 Orders Only [facility] [address] [place] [phone] Cristian Auguste MD Pericarditis (Primary Dx) 01/10/2025 Telephone [place] [address] [place] [phone] Cristian Auguste MD 01/03/2025 Results Follow-Up [place] [address] [place] [phone] Gail Wick, ELEUTERIO MCT Mobile Cardiac Telemetry Event Monitor, CTA Heart and Coronary Arteries W Morphology when Performed, MRI Cardiac M&F WO Contrast 12/25/2024 2:30 PM CDT Ancillary Procedure [place] [address] [place] [phone] Palpitations 12/25/2024 1:30 PM CDT Office Visit [place] [address] [place] [phone] Marylou Ni NP Precordial pain (Primary Dx); Chest pain on breathing; Palpitations; Hypertension, unspecified type 12/24/2024 Telephone [place] [address] [place] [phone] Cristian Auguste MD from Last 3 Months Allergies Active Allergy Reactions Criticality Noted Date Comments Guaifenesin Other (See comments),Cough Low 11/06/19 25 spastic Penicillins Hypotension High 11/06/2024 Medications famotidine (Pepcid AC) 10 mg tablet Take 1 tablet (10 mg total) by mouth 2 (two) times a day 11/13/19 25 Active naproxen (NAPROSYN) 500 mg tablet Take 0.5 tablets (250 mg total) by mouth daily 10/07/19 25 025 Discontinued colchicine (COLCRYS) 0.6 mg tablet Take 1 tablet (0.6 mg total) by mouth 2 (two) times a day 180 tablet 11/06/19 25 025 Additional Information Patient not taking.Reported on 02/19/2025 famotidine (PEPCID) 40 mg tablet Take 1 tablet (40 mg total) by mouth daily Take daily in the evening about 1-2 hours before bed for 2 weeks. 14 tablet 12/08/[address] (PROTONIX) 40 mg EC tablet TAKE 1 TABLET(40 MG) BY MOUTH DAILY 90 tablet 1 12/08/19 25 025 Discontinued omeprazole (PriLOSEC) 20 mg capsule Take 1 capsule (20 mg total) by mouth daily 025 Discontinued Active Problems Problem Noted Date Diagnosed Date Hypertension 12/25/2024 Social History Tobacco Use Types Packs/Day Years Used Date Smoking Tobacco: Former Cigarettes Tobacco Cessation:Counseling Given: Not Answered Comments Unknown Sex and Gender Information Value Date Recorded Sex Assigned at Not on file Legal Sex Female 3:13 PM [employer] Gender Identity Female 09/20/2024 5:00 PM [employer] Sexual Orientation Straight 09/20/2024 5: 00 PM [employer] Last Filed Vital Signs Vital Sign Reading Time Taken Comments Blood Pressure 128/86 02/19/2025 10:19 AM CDT Pulse 96 02/19/2025 10:19 AM CDT Temperature - - Respiratory Rate 21 01/30/2025 10:15 AM CDT Oxygen Saturation 98% 02/19/2025 10:19 AM CDT Inhaled Oxygen Concentration - - Weight 92.5 kg (204 lb) 02/19/2025 10:19 AM CDT Height 175.3 cm (5' 9) 02/19/2025 10:19 AM CDT Body Mass Index 30.13 02/19/2025 10:19 AM CDT Plan of Treatment Not on file Procedures Procedure Name Priority Date/Time Associated Diagnosis Comments ELECTROCARDIOGRAM REPORT Routine 02/19/2025 Palpitations MRI CARDIAC M&F WO CONTRAST Schedule Routine, Read Routine (OP Routine) 02/06/2025 11:15 AM CDT Precordial pain Chest pain on breathing CT HEART MORPHOLOGY AND CORONARY ARTERIES W CONTRAST Schedule Routine, Read Routine (OP Routine) 01/30/2025 10:34 AM CDT Precordial pain Chest pain on breathing CRP, HIGH SENSITIVITY Routine 01/10/2025 2:01 PM CDT ERYTHROCYTE SEDIMENTATION RATE Routine 01/10/2025 2:01 PM CDT Precordial pain MCT - MOBILE CARDIAC TELEMETRY EVENT MONITOR Routine 12/25/2024 2:08 PM CDT Palpitations from Last 3 Months Results * Electrocardiogram Report (02/19/2025) 02/19/2025 us Cristian Auguste MD ECG ORDERABLES Edited Result - Final * MRI Cardiac M&F WO Contrast (02/06/2025 11:15 AM CDT) Anatomical Region Laterality Modality Body N/A Magnetic Resonan ce 02/06/2025 2:09 PM CDT Impressions 02/06/2025 4:18 PM CDT 1. Normal cardiac size and function. 2. No evidence of myocarditis or pericarditis. Dictated by: Clifford Bernabe MD, PHD The radiology attending physician has personally reviewed this study, and had reviewed and/or edited this written report and agrees with it. Electronically signed by: Tonya Wright M.D. Narrative 02/06/2025 4:18 PM CDT EXAM: MRI CARDIAC M/T/F WO CONTRAST HISTORY: Myocarditis suspected, Pericardial disease suspected TECHNIQUE: Multiplanar MR imaging of the heart utilizing HASTE and TRUEFISP imaging sequences was performed without the administration of intravenous gadolinium contrast agent according to a custom monitored protocol. 3-D postprocessing was subsequently performed on a dedicated 3-D workstation. COMPARISON: No prior cardiac MRI. Comparison is made to coronary CT 01/30/2025 FINDINGS: Atria are normal in size. Ventricles are normal in size without focal wall motion abnormality. 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 There is stable mild dilatation of the ascending aorta measuring up to 39 mm, better assessed on prior CT angiography. There is no pericardial effusion, pericardial thickening or evidence of constrictive pericarditis. Functional information: Left ventricle: Ejection fraction: 64% End diastolic volume: 115 mL (55 mL/m2, indexed) End systolic volume: 41 mL (20 mL/m2, indexed) Stroke volume: 74 mL (35 mL/m2, indexed) Cardiac output: 5.5 L/min Cardiac index: 2.6 L/min/m2 Right ventricle: Ejection fraction: 61% End diastolic volume: 128 mL (61 mL/m2, indexed) End systolic volume: 50 mL (24 mL/m2, indexed) Stroke volume: 78 mL (37 mL/m2, indexed) Cardiac output: 5.8 L/min Cardiac index: 2.8 L/min/m2 Valves: Mitral valve: normal Tricuspid valve: normal Pulmonic valve: normal Aortic valve: normal Tissue characterization: No signal abnormalities on the T1 or T2 maps. Flow Quantification: Aorta above valve: Heart rate: 76 bpm Peak velocity: 1.2 m/sec Peak pressure gradient: 6 mmHg Fwd flow: 68 mL Rev flow: 2 mL Net flow: 66 mL Regurgitant fraction: 3% Pulmonary artery above valve: Peak velocity: 0.6 m/sec Peak pressure gradient: 2 mmHg Fwd flow: 66 mL Rev flow: 2 mL Net flow: 64 mL Regurgitant fraction: 3% Procedure Note Tonya Wright MD - 02/06/2025 EXAM: MRI CARDIAC M/T/F WO CONTRAST HISTORY: Myocarditis suspected, Pericardial disease suspected TECHNIQUE: Multiplanar MR imaging of the heart utilizing HASTE and TRUEFISP imaging sequences was performed without the administration of intravenous gadolinium contrast agent according to a custom monitored protocol. 3-D postprocessing was subsequently performed on a dedicated 3-D workstation. COMPARISON: No prior cardiac MRI. Comparison is made to coronary CT 01/30/2025 FINDINGS: Atria are normal in size. Ventricles are normal in size without focal wall motion abnormality. 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 There is stable mild dilatation of the ascending aorta measuring up to 39 mm, better assessed on prior CT angiography. There is no pericardial effusion, pericardial thickening or evidence of constrictive pericarditis. Functional information: Left ventricle: Ejection fraction: 64% End diastolic volume: 115 mL (55 mL/m2, indexed) End systolic volume: 41 mL (20 mL/m2, indexed) Stroke volume: 74 mL (35 mL/m2, indexed) Cardiac output: 5.5 L/min Cardiac index: 2.6 L/min/m2 Right ventricle: Ejection fraction: 61% End diastolic volume: 128 mL (61 mL/m2, indexed) End systolic volume: 50 mL (24 mL/m2, indexed) Stroke volume: 78 mL (37 mL/m2, indexed) Cardiac output: 5.8 L/min Cardiac index: 2.8 L/min/m2 Valves: Mitral valve: normal Tricuspid valve: normal Pulmonic valve: normal Aortic valve: normal Tissue characterization: No signal abnormalities on the T1 or T2 maps. Flow Quantification: Aorta above valve: Heart rate: 76 bpm Peak velocity: 1.2 m/sec Peak pressure gradient: 6 mmHg Fwd flow: 68 mL Rev flow: 2 mL Net flow: 66 mL Regurgitant fraction: 3% Pulmonary artery above valve: Peak velocity: 0.6 m/sec Peak pressure gradient: 2 mmHg Fwd flow: 66 mL Rev flow: 2 mL Net flow: 64 mL Regurgitant fraction: 3% IMPRESSION: 1. Normal cardiac size and function. 2. No evidence of myocarditis or pericarditis. Dictated by: Clifford Bernabe MD, PHD The radiology attending physician has personally reviewed this study, and had reviewed and/or edited this written report and agrees with it. Electronically signed by: Tonya Wright M.D. Marylou Ni NP IMG MRI PROCEDURES Final Res ult * CTA Heart and Coronary Arteries W Morphology when Performed (01/30/2025 10:34 AM CDT) Anatomical Region Laterality Modality Chest N/A Computed Tomogra phy 01/30/2025 11:0 6 AM CDT Impressions 01/30/2025 11:06 AM CDT 1. Normal coronary CTA. No anomalous coronary artery, aneurysm, dissection, or coronary artery disease. 2. Calcium score is 0. 3. Fusiform dilation of the ascending aorta with a maximum diameter 3.8 x 3.9 at the level of the main pulmonary artery Electronically signed by: Sim Rolle M.D. Narrative 01/30/2025 11:06 AM CDT EXAMINATION: CORONARY CT ANGIOGRAM HISTORY: Precordial chest pain/anginal equivalent. Chest pain on breathing TECHNIQUE: CT angiography of the coronary arteries was performed after the administration of 120 mL of Optiray 350. Images were also obtained precontrast for the purposes of calcium scoring. Prior to the examination, 30 mg of metoprolol was administered intravenously and 0.8 mg nitroglycerin was administered sublingually. The patient's heart rate at the time of the examination was 85 beats per minute. Images were transferred to a 3D workstation for additional post-processing. FINDINGS: The coronary arteries are right system dominant. There is no anomalous coronary origin or course. No focal caliber change or irregularity to suggest coronary artery dissection. Right coronary system: No atherosclerotic plaque, aneurysm, or stenosis. Left coronary system: The left main coronary artery is very short with normal variant. No atherosclerotic plaque, aneurysm, or stenosis. The calculated calcium score is 0. Other findings: The heart size is normal. Trace loculated pericardial effusion noted anteriorly. No pericardial thickening. There is mild fusiform dilation of the ascending aorta centimeters above the level of the sinuses of Valsalva maximal level of the main pulmonary artery. When measured orthogonal to the axis of the aorta the maximum diameter of the aorta measures 3.9 x 3.8 cm. No aortic dissection. Included portions of the lung windows demonstrate no significant abnormality. Bone windows demonstrate a hemangioma within T8 vertebral body. Procedure Note Sim Rolle MD - 01/30/2025 EXAMINATION: CORONARY CT ANGIOGRAM HISTORY: Precordial chest pain/anginal equivalent. Chest pain on breathing TECHNIQUE: CT angiography of the coronary arteries was performed after the administration of 120 mL of Optiray 350. Images were also obtained precontrast for the purposes of calcium scoring. Prior to the examination, 30 mg of metoprolol was administered intravenously and 0.8 mg nitroglycerin was administered sublingually. The patient's heart rate at the time of the examination was 85 beats per minute. Images were transferred to a 3D workstation for additional post-processing. FINDINGS: The coronary arteries are right system dominant. There is no anomalous coronary origin or course. No focal caliber change or irregularity to suggest coronary artery dissection. Right coronary system: No atherosclerotic plaque, aneurysm, or stenosis. Left coronary system: The left main coronary artery is very short with normal variant. No atherosclerotic plaque, aneurysm, or stenosis. The calculated calcium score is 0. Other findings: The heart size is normal. Trace loculated pericardial effusion noted anteriorly. No pericardial thickening. There is mild fusiform dilation of the ascending aorta centimeters above the level of the sinuses of Valsalva maximal level of the main pulmonary artery. When measured orthogonal to the axis of the aorta the maximum diameter of the aorta measures 3.9 x 3.8 cm. No aortic dissection. Included portions of the lung windows demonstrate no significant abnormality. Bone windows demonstrate a hemangioma within T8 vertebral body. IMPRESSION: 1. Normal coronary CTA. No anomalous coronary artery, aneurysm, dissection, or coronary artery disease. 2. Calcium score is 0. 3. Fusiform dilation of the ascending aorta with a maximum diameter 3.8 x 3.9 at the level of the main pulmonary artery Electronically signed by: Sim Rolle M.D. Marylou Ni NP IMG CT PROCEDURES Final Resu lt * Erythrocyte sedimentation rate (01/10/2025 2:01 PM CDT) Erythrocyte sedimentation rate 9 < OR = 20 mm/h [facility] Blood 01/10/2025 2:01 PM CDT 01/10/2025 2:01 PM CDT Cristian Auguste MD LAB BLOOD ORDERABLES Final Resul t [facility] [address] [place] [address] * (ABNORMAL) CRP (cardiac risk) (01/10/2025 2:01 PM CDT) hsCRP 3.5(H) mg/L [facility] Comment: Reference Range Optimal <1.0 Dmitriy KEATING et al. Endocr Pract.2017;23(Suppl 2):1-87. For ages >17 Years: hs-CRP mg/L Risk According to AHA/CDC Guidelines <1.0 Lower relative cardiovascular risk. 1.0-3.0 Average relative cardiovascular risk. 3.1-10.0 Higher relative cardiovascular risk. Consider retesting in 1 to 2 weeks to exclude a benign transient elevation in the baseline CRP value secondary to infection or inflammation. >10.0 Persistent elevation, upon retesting, may be associated with infection and inflammation. Rafael TA, Kaleigh GA, Jt RW, et al. Markers of inflammation and cardiovascular disease: application to clinical and public health practice: A statement for healthcare professionals from the Centers for Disease Control and Prevention and the [place] Heart Association. Circulation 2003; 107(3): 499-511. 01/10/2025 2:01 PM CDT 01/10/2025 2:01 PM CDT Cristian Auguste MD LAB BLOOD ORDERABLES Final Resul t [email or web address] [address] [place] [address] * MCT Mobile Cardiac Telemetry Event Monitor (12/25/2024 2:08 PM CDT) Anatomical Region Laterality Modality Electrocardiogra phy Narrative 01/02/2025 3:30 PM CDT AMBULATORY DIRECTOR OF CLINICAL SERVICES REPORT Patient Name: Africa Jenkins Date of : 1980 Requesting Physician: Marylou Ni NP Date of interpretation: 01/02/25 Type of monitor : Seven-day event monitor Date of the study/Enrollment period: 12/25/2024- 12/31/2024 Indication: palpitations Quality of the study: adequate Interpretation: predominant underlying rhythm is sinus rhythm, heart rate ranges between 52 beats per minute to 132 beats per minute, average heart rate 80 beats per minute. Rare ventricular and supraventricular ectopy was noted. No significant arrhythmias. No symptoms reported. Conclusions: Predominant underlying rhythm is sinus rhythm, average heart rate 80 beats per minute. No significant arrhythmias. No symptoms reported. Voice recognition software was used to complete this document, therefore, social sciences lecturer variances may occur. Jayden Holliday MD, [facility] 01/02/25 us Marylou Ni ACCOUNTING CONSULTANT CV CARDIAC SERVICES PROCEDUR ES Final Result from Last 3 Months Insurance [facility] [place] [id number] [place] [id number] Care Teams Seat Cover Maker Relationship Specialty Start Date End Date Arabella Ashley PA [address] [place] [id number] PCP - General Physician Band Leader 09/18/24
--- OUTSIDE RECORDS SUMMARY | 2025-02-28 15:22 | XMS_ITS | Data Portability ---
Author Organization [facility] Address [address] [place] [address] Care Team Providers Care Diet Assistant Name Role Phone ARABELLA SINGH Primary Care Provider Unavailab le Assessment No assessment recorded. Plan of Treatment Reminders Order Date Submit Date Provider Last Modified By Organization Details Last Modified Time Details Appointments ANY 15 2024 10:00A M DARION Arzate Not available Not available Not available Lab TSH + free T4, serum 2023 024 [facility], [address], [place], [address], 01/20/2024 09:28:40 insulin, serum 2023 024 [facility], [address], [place], [address], 02/01/2024 16:27:10 T3, free, serum or plasma 2023 024 [facility], [address], [place], [address], 02/01/2024 16:27:10 noninvasi ve colorecta l cancer DNA + occult blood screening , QL, stool 2023 024 [email or web address] (Cologuard Orders Only), [address], [address], [place], [address], 05/10/2024 18:45:40 lipid panel, serum 2023 024 [place] [address] [facility], [address], [address], [place], [address], 02/01/2024 16:27:09 CMP, serum or plasma 2023 024 [place] [address] [facility], [address], [address], [place], [address], 02/01/2024 16:27:09 HbA1c (hemoglob in A1c), blood [address] [facility], [address], [address], [place], [address], 02/01/2024 16:27:09 iron + TIBC + ferritin, serum 2023 024 [employer], [address], [address], [place], [address], 01/20/2024 09:28:40 CBC w/ auto diff [address], [address], [address], [place], [address], 02/01/2024 16:27:09 vitamin B12 + folate, serum or blood 2023 [address] [place] [address] [facility], [address], [address], [place], [address], 02/01/2024 16:27:10 Referral cardiolog ist referral - trivial pericardi al effusion noted on Oct ECHO. pt remains symptomat ic. f/u ECHO ordered to re-eval 2024 025 [facility], [address], [address], [place], [address], 11/06/2024 13:37:35 Procedures None recorded. Surgeries None recorded. Imaging US, echocardi ogram, transthor acic, complete, w/ color flow [address] ([facility]iology [facility] Emg), [address], [place], [address], 11/16/2024 13:52:55 US, echocardi ogram, transthor acic, complete, w/ color flow - NISHANT schedulin g if possible need prior to planned diagnosti c colonosco py that is Jun 26. 2023 024 [facility] ([facility]), [address], [place], [address], 06/19/2024 16:40:41 exercise stress test - NISHANT schedulin g if possible need prior to planned diagnosti c colonosco py that is Jun 26. 2023 024 [facility] ([facility]iology [facility]), [address] [facility], [place], [address], 07/04/2024 14:36:40 electroca rdiogram 2023 024 [facility] ([facility]), [address] [place] [address], [address], 06/11/2024 21:00:08 Medication Orders naproxen 500 mg tablet 2024 025 [place] [id number], [address] [place] [address], [id number], 09/14/2024 18:04:17 Patient TargetsNo targets recorded. Patient InstructionsNo instructions recorded. Reason for Referral Sap Architect Referral for Pe ricardial effusion trivial pericardial [...] is negat jimmy. TEST DESCR IPTIO N: [place] site algor ithmi c yael sis of stool DNA-b iomar kers with hemog lobin immun oassa y. Quant itati ve value s of indiv idual bioma rkers are not repor table and are not assoc iated with indiv idual bioma rker resul t refer ence range s. Colog uard is inten ded for color ectal cance r scree wallace of adult s of eithe r sex, 45 years or older , who are at [facility] for color ectal cance r (CRC) . Colog uard has been appro keke for use by the U.S. FDA. The perfo rmanc e of Colog uard was estab lishe d in a cross secti onal study of [facility] adult s aged 50-84 . Colog uard [...] of 10,00 0 indiv idual s at [facility] risk for color ectal cance r who were scree linda with both Colog uard and colon oscop y. (Lara Rosado et al, N Engl J Med 2014; 370(1 [...] inter be[place]ley is every 3 years . (Amer ican Cance r Socie ty and U.S. Multi -Soci ety Task Force ). Colog uard perfo rmanc e data in a ,00 0 patie nt pivot al study using colon oscop y as the refer ence metho d can be acces sed at the follo wing locat ion: www.e xactl abs.c om/re alisha . Addit ional descr iptio n of the Colog uard test proce ss, warni ngs and preca ution s can be found at www.c ologu elinor.c om. Not Available [facility] (Cologuard Orders Only) [address], [place], [address], 05/10/2024 18:45:40 07/25/2007/25/2024 pap, IG + HR HPV HPV negati ve Not Available Not Available 15:32:09 06/11/20 24 06/11/2024 elect paulette garcia am No observ ation record ed. [facility] ([facility]iology [facility]) [address] [place] [address], [address], 06/12/2024 10:48:12 06/29/20 24 06/20/2024 US, echoc ardio gram, trans thora cic, compl ete, w/ color flow No observ ation record ed. [address] [facility] [place], [address], 07/01/2024 17:22:51 07/04/20 24 06/25/2024 exerc ise stres s test No observ ation record ed. [facility] ([facility]iology [facility]) [address] [place] [address] [address], [place], [address], 07/12/2024 16:49:54 10/12/19 25 10/12/2024 ivan SIERRA, sarath al, bilat cucol No observ ation record ed. [email or web address] [address] [facility] [address], [place], [address], 10/12/2024 13:59:36 Result Notes None recorded. Medical Equipment None Reported. Allergies Allergen ID Allergen Name Allergen Category Reaction Reaction Severity Criticality Documentation Date Start Date Code Code System Note Provider Name and Address Organization Details Recorded Time 819207 Product containin g penicilli n (product) medicatio n vomiting Not available Not available 12/19/2023 44740 [address] [place]ocha, [place] - [place] 4 11:55:55 Medications Name Sig Start Date Stop Date Status Note LastModified by Organization Details LastModified Time cefuroxime axetil 500 mg tablet TAKE 1 TABLET BY MOUTH EVERY 12 HOURS FOR 10 DAYS 06/08 completed Not Available Not Available Not Available naproxen 500 mg tablet TAKE 1 TABLET BY MOUTH TWICE DAILY WITH MEALS active Not Available Not Available No t Available Vitals Date Recorded Systolic blood pressure Diastolic blood pressure Systolic blood pressure Diastolic blood pressure Provider Name and Address Organization Details Last Updated DateTime 09/14/2024 118 mm[Hg] 84 mm[Hg] 120 mm[Hg] 80 mm[Hg] DARION Arzate Attn: Accounting ,[address] [place], [address] , [place] - [place] 5 12:19:21 Date Recorded Body height Body mass index (BMI) Body weight Oxygen saturation Oxygen saturation in Arterial blood by Pulse oximetry Heart rate Systolic blood pressure Diastolic blood pressure Provider Name and Address Organization Details Last Updated DateTime 5 176.53 cm 29.7 kg/m2 18203.8 4 g 99 % 99 % 99 /min 130 mm[Hg] 82 mm[Hg] Katia Baron MA [place] 11:58:19 Date Recorded Systolic blood pressure Diastolic blood pressure Provider Name and Address Organization Details Last Updated DateTime 12/19/2023 120 mm[Hg] 80 mm[Hg] DARION Arzate Attn: Accounting,[address] [place], [address] 12/19/2023 12:46:24 Date Recorded Body weight Body mass index (BMI) Body height Heart rate Oxygen saturation Oxygen saturation in Arterial blood by Pulse oximetry Body temperature Systolic blood pressure Diastolic blood pressure Provider Name and Address Organization Details Last Updated DateTime 4 86103.4 g 30.6 kg/m2 176.53 cm 92 /min 98 % 98 % 97.9 [degF] 110 mm[Hg] 80 mm[Hg] Jo Bates MA [facility] 4 11:59:09 Date Recorded Systolic blood pressure Diastolic blood pressure Provider Name and Address Organization Details Last Updated DateTime 06/08/2024 120 mm[Hg] 80 mm[Hg] DARION Arzate Attn: Accounting,[address] [place], [address] 06/19/2024 09:21:11 Date Recorded Body height Body mass index (BMI) Body weight Respiratory rate Oxygen saturation Oxygen saturation in Arterial blood by Pulse oximetry Heart rate Systolic blood pressure Diastolic blood pressure Provider Name and Address Organization Details Last Updated DateTime 4 176.53 cm 29.1 kg/m2 45251.8 3 g 18 /min 97 % 97 % 88 /min 118 mm[Hg] 72 mm[Hg] Katia Baron MA [facility] 4 10:54:47 Social History Question Answer Notes LastModified by Organizat ion Details LastModified Time Tobacco Smoking Status Never Smoker Katia Baron MA null, [facility] 06/08/2024 10:52:01 Are You Blind Or Do You Have [...] Smoked Tobacco? 0 Information not available 06/08/2024 Sex: Female Functional Status Question Answer Note LastModified by Organizat ion Details LastModified Time Do you use any illicit or recreational drugs? No Information not available 12/19/2023 Do you or have you ever used any other forms of tobacco or nicotine? No Information not available 12/19/2023 What is your level of alcohol consumption? None Information not available 12/19/2023 Are you able to care for yourself? Yes Information n ot available 06/08/2024 What is your exercise level? [...] Atrial Fibrillation N High Blood Pressure N Kidney or Bladder Problems N Thyroid Problems N GI Problems N Depression N COPD N Blood Clots N Skin Problems N Anemia Y Heart Attack (MS) N Anxiety Disorder Y Diabetes N Muscle, Joint, or Bone Problems N Seizures/Epilepsy N Acid Reflux (GERD) N Cancer N Stroke N Asthma N Allergies Y High Cholesterol N Hepatitis N Liver Disease N Headaches N Osteoporosis N Heart Failure N Gynecological History Statement/Question Response Menses Monthly N Obstetrics History GPAL:G 0 P 0 0 0 0 Past Encounters Encounter ID Performer Location Encounter Start Date Encounter Closed Date Diagnosis/Indication Diagnosis SNOMED-CT Code Diagnosis ICD10 Code Diagnosis Note [id number] Artis Menezes MD [facility] [address] [place] [address] 12/19/2023 11:40:57 12/19/2023 12:48:19 Adult health examination 312162449 Z00.00 annual wellness completed. Routine fasting labs ordered. Cholesterol screening 27 1114283 Z13.220 fasting lipids are due Diabetes m ellitus screening 038919746 Z13.1 screening ordered for a1c Screening for malignant neoplasm of colon 404709592 Z12.11 pt opts for cologuard screening method. Iron defic iency anemia 04686269 D50.9 screening iron studies and b12/folate ordered. Weight gain 3642493 R63. 5 screening thyroid panel and insulin. [id number] Artis Menezes MD [facility] [address] [place] [address] 06/08/2024 10:41:36 06/08/2024 11:48:01 Atypical chest pain 499021858 R07.89 Refer for exercise treadmill stress testing with atypical chest pain report. EKG in the office is stable. Palpitations 57039750 R0 0.2 Persistent paroxysmal palpitatio ns. Check a baseline echocardio gram with Doppler to evaluate structure and ejection fraction and chamber size. [id number] Artis Menezes MD [facility] [place]ace [place] [address] [place] [address] 09/14/2024 11:50:05 09/14/2024 12:24:07 Pericardial effusion 631196116 I31.39 Trivial pericardia l effusion noted on her echocardio gram this fall. We will repeat complete echo with Doppler to monitor for stability and improvemen t. Patient also would like to consult with a cardiologi st regarding this. Atypical chest pain 1025 22032 R07.89 Patient has atypical chest pain is [...] Recorded Advance Directives Directive None Recorded Payers Insurance Date Sequence Insurance Name Policy Number Policy Whiting Covered Member ID Whiting Member ID Guarantor Name 12/24/2024 1 [employer] [id number] Edison Jenkins [id number] 1 Africa Jenkins 02/12/2025 1 [place] Tonia Jenkins [id number] Africa Jenkins 09/14/2024 1 [place] [id number] Edison Jenkins [id number] Africa Jenkins Notes Date Note Type Note [...] for now. DARION Arzate Attn: Accounting,[address], [place], [address], [facility] 01/07/2024 23:53:59 4 text/html Angina/Chest PainReported bypatient.Location:chest; [...] more consistent. DARION Arzate Attn: Accounting,[address] [facility], [place], [address], [facility] 06/19/2024 09:21:28 5 text/html PalpitationsReported bypatient.Notes:Patient reports [...] to testing. DARION Arzate Attn: Accounting,[address] [facility], [place], [address], [facility] 10/07/2024 18:06:33 OBGyn Episode No OBEpisode recorded.
--- OUTSIDE RECORDS SUMMARY | 2025-02-28 15:22 | XMS_ITS | Clinical Summary ---
Author Organization [facility] [address] [facility] [address] Address [address] [facility] [address] [place] [address] Care Team Providers Care Director Of Retail Marketing Name Role Phone Arabella Ashley Primary Care Pr ovider Allergies Active Allergy Reactions Criticality Noted Date Comments Guaifenesin Other (See comments),Cough Low 11/06/19 spastic Penicillins Hypotension High 11/06/2024 Medications famotidine [...] bed for 2 weeks. 14 tablet 12/08/[address] (PROTONIX) 40 mg EC tablet TAKE 1 TABLET(40 MG) BY MOUTH DAILY 90 tablet 1 12/08/19 25 025 Discontinued omeprazole (PriLOSEC) 20 mg capsule Take 1 capsule (20 mg total) by mouth daily 025 Discontinued Active Problems Problem Noted Date Diagnosed Date Hypertension 12/25/2024 Encounters Date Type Department Care Team Description 02/19/2025 10:30 AM CDT Office Visit [facility] Cardiology [address] [place] [address] [place] [phone] Cristian Auguste MD Palpitations (Primary Dx) 02/12/2025 Telephone [facility] Cardiology [address] [place] [address] [place] [phone] Cristian Auguste MD 02/06/2025 9:27 AM CDT - 02/06/2025 11:59 PM CDT Hospital Encounter [facility] [address] [place] [address] Precordial pain; Chest pain on breathing Discharge Disposition: Discharge to home or self care 02/06/2025 Telephone [place] [address] [place] [phone] Marylou Ni NP 01/30/2025 9:34 AM CDT - 01/30/2025 11:59 PM CDT Hospital Encounter [facility] [address] [place] [address] Precordial pain; Chest pain on breathing Discharge Disposition: Discharge to home or self care 01/21/2025 Telephone [facility] Cardiology [address] [place] [address] [place] [phone] Cristian Auguste MD 01/10/2025 Orders Only [facility] Cardiology [address] [facility] [address] [place] [phone] Cristian Auguste MD Pericarditis (Primary Dx) 01/10/2025 Telephone [facility] Cardiology [address] [place] [address] [place] [phone] Cristian Auguste MD 01/03/2025 Results Follow-Up [facility] Cardiology [address] [place] [address] [place] [phone] Delano, Gail N., RN [facility] Mobile Cardiac Telemetry Event Monitor, CTA Heart and Coronary Arteries W Morphology when Performed, MRI Cardiac M&F WO Contrast 12/25/2024 2:30 PM CDT Ancillary Procedure [facility] Cardiology [address] [place] [address] [address] [place] [phone] Palpitations 12/25/2024 1:30 PM CDT Office Visit [place] [address] [place] [phone] Marylou Ni NP Precordial pain (Primary Dx); Chest pain on breathing; Palpitations; Hypertension, unspecified type 12/24/[address] [place] [phone] Cristian Auguste MD from Last 3 Months Medical History Medical History Date Comments Hyperlipidemia Family History Relation Name Status Comments Father Alive Mother Alive Social History Tobacco Use Types Packs/Day Years Used Date Smoking Tobacco: Former Cigarettes Tobacco Cessation:Counseling Given: Not Answered Comments Unknown Sex and Gender Information Value Date Recorded Sex Assigned at Not on file 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 Gender Identity Female 09/20/2024 5:00 PM FISH FARM LABORER Sexual Orientation Straight 09/20/2024 5: 00 PM FISH FARM LABORER Obstetrics History Last Filed Vital Signs Vital Sign Reading [...] 02/19/2025 10:19 AM CDT Plan of Treatment Health Maintenance Due Date Last Done Comments Breast Cancer Screening-Mammogram 1978 Cervical Cancer Screening 1978 Colon Cancer Screening-Colonoscopy 1978 Depression Screening 1978 Hepatitis C Screening 1978 DTaP/Tdap/Td Vaccine (1 - Tdap) 1989 Hepatitis B Screening 1996 Regular Well Visit/Exam 18-64 1996 Influenza Vaccine (Season Ended) 2025 HPV Vaccines Aged Out No longer eligi ble based on patient's age to complete this topic Pneumococcal vaccine <65 Aged Out No longer eligible based on patient's age to complete this topic Procedures Procedure Name Priority Date/Time Associated Diagnosis [...] Months Results * Electrocardiogram Report (02/19/2025) 02/19/2025 Cristian Auguste MD ECG ORDERABLES Edited Result [...] Electronically signed by: Tonya Wright M.D. Marylou Fang Raine CHIEF AIRPORT GUIDE IMG MRI PROCEDURES Final Res ult * [...] signed by: Sim Rolle M.D. Marylou Ni CHIEF AIRPORT GUIDE IMG CT PROCEDURES Final Resu lt * Erythrocyte sedimentation rate (01/10/2025 2:01 PM CDT) Erythrocyte sedimentation rate 9 < OR = 20 mm/h [facility] Blood 01/10/2025 2:01 PM CDT 01/10/2025 2:01 PM CDT Cristian Auguste MD LAB BLOOD ORDERABLES Final Resul t Performing Organization Address [facility] de Phone Number [facility] [address] [place] [address] * (ABNORMAL) CRP (cardiac risk) (01/10/2025 2:01 PM CDT) hsCRP 3.5(H) mg/L [facility] Comment: Reference Range Optimal <1.0 Dmitriy PS et al. Endocr Pract.2017;23(Suppl 2):1-87. For ages [...] associated with infection and inflammation. Rafael TA, Kalegih GA, Jt RW, et al. Markers of inflammation and cardiovascular disease: application to clinical and public health practice: A statement for healthcare professionals from the Centers for Disease Control and Prevention and the [place] [employer]. Circulation 2003; 107(3): 499-511. 01/10/2025 2:01 PM CDT 01/10/2025 2:01 PM CDT Cristian Auguste MD LAB BLOOD ORDERABLES Final Resul t Performing Organization Address [facility] Co de Phone Number [facility] [address] [place] [address] * [facility] Mobile Cardiac Telemetry Event Monitor (12/25/2024 2:08 PM CDT) Anatomical Region Laterality Modality Electrocardiogra phy Narrative 01/02/2025 3:30 PM CDT AMBULATORY CONTACT LENS TECHNICIAN REPORT Patient Name: Africa Jenkins Date of : 1980 Requesting Physician: Marylou Raine, CHIEF AIRPORT GUIDE Date of interpretation: 01/02/25 Type of monitor [...] was used to complete this document, therefore, port surveyor variances may occur. Jayden Holliday MD, [facility] 01/02/25 Marylou Ni CHIEF AIRPORT GUIDE CV CARDIAC SERVICES PROCEDUR ES Final Result from Last 3 Months Insurance [facility] [place] [id number] [place] [id number] Care Teams Director Of Retail Marketing Relationship Specialty Start Date End Date Arabella Ashley PA [address] [place] [address] PCP - General Physician Systems Development Consultant 09/18/24
--- OUTSIDE RECORDS SUMMARY | 2025-02-28 15:22 | XMS_ITS | Encounter Summary ---
Author Organization [facility] Healthcare Address [address] [place] [address] Care Team Providers Care Boiler Tenders Supervisor Name Role Phone Arabella Ashley Primary Care Pr ovider Encounter Details Date Type Department Care Team (Late st Contact Info) Description 01/03/2025 Results Follow-Up 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
--- NOTE | 2025-02-28 15:24 | ECG_ITS ---
Test Date: 2025-02-28 15:28:33 Measurements Intervals [place] Rate: 110 P: 57 CO: 112 QRS: 48 QRSD: 89 T: 38 QT: 313 QTc: 424 Interpretive Statements SINUS TACHYCARDIA ABNORMAL ECG Compared to ECG 06/11/2024 11:55:02 HEART RATE HAS INCREASED Electronically Signed On 02-28-2025 15:39:30 CDT by Mekhi Swanson D.O.
[2025-02-28] MEDS: ASPIRIN 81 MG CHEWABLE TABLET 324 MG PO (15:40)
--- NOTE | 2025-02-28 15:47 | ED_ITS ---
HPI - Arrhythmia/Palpitations General Chief Complaint: Arrhythmia/Palpitations Stated Complaint: chest pain Time Seen by Provider: 02/28/25 15:32 Source: patient and RN notes reviewed Mode of arrival: ambulatory Limitations: no limitations History of Present Illness HPI narrative: 41 y/o WF in the ED for c/o fast HR X 1 hr. Pt states she was drinking herbal, non-caffeinated tea, burped, and felt some palpitations. Pt states she checked her HR on her personal SPO2 monitor, noted the HR was elevated in the 190s. Pt endorses SOB initially, but thinks it may have been anxiety r/t her elevated HR. Pt endorses pain to substernal chest, currently 4/10, described as sharp. Denies radiation of pain, GAUATM, dizziness, N/V. Pt has taken no meds prior to arrival. Pt sees cardiology for CP and tachycardia; Echo and stress test all clean per pt and discussed watchful waiting with legal referee. Pt denies any caffeine, coffee, tea, pre-workout, or illicit drug use. Related Data Home Medications ?Medication ?Instructions ?Recorded ?Confirmed ?Last Taken ?Type ascorbic acid (vitamin C) 500 mg 500 mg PO DAILY 04/14/22 10/23/24 10/22/24 History tablet (Vitamin C) zinc acetate 25 mg (zinc) capsule 25 mg PO DAILY 04/14/22 10/23/24 10/22/24 History omeprazole 20 mg capsule,delayed 20 mg PO DAILY 10/23/24 10/23/24 10/22/24 History release Allergies Allergy/AdvReac Type Severity Reaction Status Date / Time Penicillins Allergy Mild Hives Verified 10/23/24 10:25 guaifenesin Allergy Palpitation Verified 10/23/24 10:25 s Review of Systems 2 Review of Systems: CONSTITUTIONAL: Denies fever, chills, or sweats. EYES: Denies visual changes, redness, or discharge. ENT: Denies rhinorrhea, congestion, sore throat, or otalgia. CARDIOVASCULAR: Endorses chest pain, palpitations. Denies edema. RESPIRATORY: Denies cough. Endorses slight SOB initially, none now. GASTROINTESTINAL: Denies abdominal pain, nausea, vomiting, or diarrhea. GENITOURINARY: Denies dysuria or hematuria. SKIN: Denies rash or itching. MUSCULOSKELETAL: Denies back pain, joint pain, or myalgia. NEUROLOGIC: Denies headache, numbness, or weakness. PSYCHIATRIC: Denies anxiety or depression. [facility] Past Medical History Medical History (Updated 02/28/25 @ 17:57 by Gee Rivero APRN) Positive colorectal cancer screening using Cologuard test GERD (gastroesophageal reflux disease) History of smoking Over weight Menorrhagia No active medical problems Family History Family History (Updated 02/28/25 @ 15:57 by Gee Rivero APRN) Father Atrial fibrillation Sibling Tachycardia Social History Social History (Updated 07/27/23 @ 10:40 by Radha Ayers MA) Years smoked: 8 Smoking status: Former smoker Tobacco type: cigarettes Smoking end date: 09/12/07 Alcohol intake: never Substance use: never Substance use type: does not use Lack of Transportation: No Lack of Food: Never True Current Housing: I Have Housing Concerned About Future Housing: No Difficulty Paying Gas/Electric Bills: No Difficulty Paying for Meds: No Currently Unemployed: YES Education: Master's Degree or Higher Difficulty w/ Childcare or Family Care: No Living arrangements: with family Occupation/Education: unemployed Gender identity (if verbalized by the patient): Female Sexual Orientation (if Verbalized by the Patient): Straight or Heterosexual Spiritual care concerns: No Exam 2 Narrative: GENERAL: Well-appearing, well-nourished, and in no acute distress. HEAD: Normocephalic, atraumatic. EYES: PERRLA and EOMI. ENT: Nares clear, no rhinorrhea or epistaxis. Mucous membranes moist. NECK: Supple. CHEST: Clear to auscultation. No respiratory distress. HEART: Regular rate and rhythm, ST on monitor. No murmur heard. Normal peripheral pulses. Pt endorses pain on palpation of the sternum ABDOMEN: Soft, nontender, nondistended, normal active bowel sounds. EXTREMITIES: Normal range of motion. No edema. SKIN: Warm, dry, no rash. NEURO: No focal deficits. Alert and oriented x3. PSYCH: Normal mood and affect. Pt slightly anxious, but calm. Course Vital Signs Vital signs: Vital Signs Pulse Rate 100 02/28/25 15:26 Respiratory Rate 16 02/28/25 15:26 Pulse Oximetry 99 02/28/25 15:26 Temperature 36.6 C 02/28/25 15:30 Pulse Rate 190 H 02/28/25 16:00 Respiratory Rate 22 H 02/28/25 16:00 Blood Pressure 133/109 H 02/28/25 15:45 Pulse Oximetry 99 02/28/25 16:00 Oxygen Delivery Room Air 02/28/25 15:35 MDM - Arrhythmia/Palpitations MDM Narrative Medical decision making narrative: Initial EKG completed shows sinus tach rate of 110. Patient given 324 mg of aspirin on arrival. CBC within normal limits. PT INR PTT within normal limits. Chemistry stable. Chest x-ray normal per radiology read. Initial troponin negative. Patient noted on 2 separate occasions to have SVT lasting about 1-2 minutes. Patient endorsed palpitations and feeling off when occurring. First episode started at about 3:59pm with a rate in the 170s to 180s. Second noted episode at 4:12 p.m. with a rate of 184. Non interventional radiology paged at 5:[address] Beatty from Cardiology regarding patient at 5:25 p.m. Patient started on p.o. Cardizem 30 mg every 6 hours for rate control. Hospitalist paged at 5:40 p.m. spoke with Tonia hospitalist at 5:50 p.m. Discussed treatment course with patient and she verbalized understanding. Patient to be admitted under tele, orders placed, charge nurse may aware. Differential Diagnosis Differential diagnosis: Likely palpitations, anxiety, sinus tachycardia, artial fibrillation and artial flutter Medical Records Attestation: I reviewed the patient's medical records. Lab Data Attestation: I reviewed the patient's lab results. 02/28/25 15:42 02/28/25 15:42 Labs: Lab Results 02/28/25 Range/Units 15:42 WBC 7.8 (4.5-10.0) K/mm3 RBC 4.64 (4.2-5.4) M/mm3 Hgb 13.6 (12.0-15.0) g/dL Hct 40.6 (37.0-47.0) % MCV 87.5 (80-100) fl MCH 29.3 (26-34) pg MCHC 33.5 (32-36) g/dl RDW 13.2 (11.5-14.5) % Plt Count 288 (150-375) k/mm3 MPV 9.2 (7.4-10.4) fl Immature Gran % (Auto) 0.1 (0-0.5) % Neut % (Auto) 75.1 H (45.5-73.1) % Lymph % (Auto) 17.4 L (18.3-44.2) % [place] % (Auto) 6.9 (2.6-8.5) % Eos % (Auto) 0.1 (0-4.4) % Baso % (Auto) 0.4 (0.2-1.2) % Lymph # (Auto) 1.36 (0.9-3.2) K/mm3 [place] # (Auto) 0.5 (0.1-0.6) K/mm3 Eos # (Auto) 0.0 (0-0.3) K/mm3 Baso # (Auto) 0.0 (0.0-0.1) K/mm3 Abs Immat Gran (auto) 0.01 (0.00-0.031) K/mm3 Absolute Neuts (auto) 5.9 (1.3-6.7) K/mm3 Absolute Nucleated RBC 0.000 (0.0-0.012) K/mm3 Nucleated RBC % 0.0 (0.0-0.2) % PT 13.7 (11.1-14.7) Seconds INR 1.0 APTT 28.1 (22.3-36.8) Seconds Sodium 138 (137-145) mmol/L Potassium 3.5 (3.4-5.0) mmol/L Chloride 105 (98-107) mmol/L Carbon Dioxide 21 L (22-30) mmol/L Anion Gap 12 (4-12) mmol/L BUN 17 D (7-17) mg/dL Creatinine 1.04 H (0.7-1.0) mg/dL Estim Creat Clear Calc 73 ml/min Estimated GFR 57 L (59 - ) Glucose 107 (65-110) mg/dL Calcium 9.4 (8.4-10.2) mg/dL Total Bilirubin 0.7 (0.2-1.3) mg/dL AST 31 (14-36) U/L ALT 30 (6-35) U/L Alkaline Phosphatase 77 (38-126) U/L Troponin I < 0.012 (0.000-0.034) ng/mL Total Protein 7.9 (6.3-8.2) g/dL Albumin 4.5 (3.5-5.1) g/dL Lipase 275 (23-300) U/L Imaging Data Radiologist's impression: ITS Impressions Chest X-Ray 02/28/25 16:05 IMPRESSION: No focal infiltrate or effusion. ECG Data EKG #1: ECG completion date: 02/28/25 ECG completion time: 15:28 Prior ECG tracings: available for review EKG Interpretation: tachycardia, sinus rhythm and no ST changes Discharge Plan Discharge Clinical Impression: NSVT (nonsustained ventricular tachycardia) Patient Disposition: Still a Patient Condition: Stable Patient Language: Bengali Prescriptions: No Action zinc acetate 25 mg (zinc) Capsule 25 mg PO DAILY ascorbic acid (vitamin C) [Vitamin C] 500 mg Tablet 500 mg PO DAILY omeprazole 20 mg capsule,delayed release(DR/EC) 20 mg PO DAILY Follow-up/Referrals: Dion,MARK Bell [Primary Care Provider] -
[2025-02-28 15:50] LABS: Basophils Percent Auto 0.4 % (0.2-1.2); Eosinophils Percent Auto 0.1 % (0-4.4); Hematocrit 40.6 % (37.0-47.0); Hemoglobin 13.6 g/dL (12.0-15.0); Immature Granulocyte Absolute 0.01 K/mm3 (0.00-0.031); Immature Granulocyte Percent A 0.1 % (0-0.5); Lymphocytes Absolute Auto 1.36 K/mm3 (0.9-3.2); Lymphocytes Percent Auto 17.4 % (18.3-44.2); Mean Corpuscular HGB Conc 33.5 g/dl (32-36); Mean Corpuscular Hemoglobin 29.3 pg (26-34); Mean Corpuscular Volume 87.5 fl (80-100); Mean Platelet Volume 9.2 fl (7.4-10.4); Monocytes Absolute Auto 0.5 K/mm3 (0.1-0.6); Monocytes Percent Auto 6.9 % (2.6-8.5); Neutrophils Absolute Auto 5.9 K/mm3 (1.3-6.7); Neutrophils Percent Auto 75.1 % (45.5-73.1); Platelet Count Result 288 k/mm3 (150-375); Red Blood Count 4.64 M/mm3 (4.2-5.4); Red Cell Distribution Width 13.2 % (11.5-14.5); White Blood Count 7.8 K/mm3 (4.5-10.0)
[2025-02-28 16:03] LABS: Alanine Aminotransferase 30 U/L (6-35); Albumin Level 4.5 g/dL (3.5-5.1); Alkaline Phosphatase 77 U/L (38-126); Anion Gap 12 mmol/L (4-12); Aspartate Amino Transferase 31 U/L (14-36); Bilirubin,Total 0.7 mg/dL (0.2-1.3); Blood Urea Nitrogen 17 mg/dL (7-17); Calcium 9.4 mg/dL (8.4-10.2); Carbon Dioxide 21 mmol/L (22-30); Chloride 105 mmol/L (98-107); Estimated CRCL calculation 73 ml/min; Estimated Glomerular Filt Rate 57; Glucose 107 mg/dL (65-110); Lipase 275 U/L (23-300); Potassium 3.5 mmol/L (3.4-5.0); Sodium 138 mmol/L (137-145); Total Protein 7.9 g/dL (6.3-8.2)
[2025-02-28 16:05] LABS: Prothrombin Time 13.7 Seconds (11.1-14.7)
[2025-02-28 16:06] LABS: Partial Thromboplastin Time 28.1 Seconds (22.3-36.8)
--- OUTSIDE RECORDS SUMMARY | 2025-02-28 16:10 | XMS_ITS | Referral Summary ---
Author Organization [facility] [address] [facility] [address] Address [address] [place] [address] Care Team Providers Care Contact Lens Inspector Name Role Phone Arabella Ashley Primary Care Pr ovider Encounters Date Type Department Care Team Description 02/19/2025 10:30 AM CDT Office Visit [facility] Cardiology [address] [place] [address] Cristian Auguste MD Palpitations (Primary Dx) 02/12/2025 Telephone [facility] Cardiology [address] [facility] [address] [place] [address] Cristian Auguste MD 02/06/2025 Telephone [facility] Cardiology [address] [facility] [address] [place] [address] Marylou Ni NP 02/06/2025 9:27 AM CDT - 02/06/2025 11:59 PM CDT Hospital Encounter [facility] [address] [place] [address] Precordial pain; Chest pain on breathing Discharge Disposition: Discharge to home or self care 01/30/2025 9:34 AM CDT - 01/30/2025 11:59 PM CDT Hospital Encounter [facility]) [address] [place] [address] Precordial pain; Chest pain on breathing Discharge Disposition: Discharge to home or self care 01/21/2025 Telephone [facility] Cardiology [address] [place] [address] [place] [phone] Cristian Auguste MD 01/10/2025 Orders Only [facility] Cardiology [address] [place] [phone] Cristian Auguste MD Pericarditis (Primary Dx) 01/10/2025 Telephone [place] [address] [place] [phone] Cristian Auguste MD 01/03/2025 Results Follow-Up [place] [address] [place] [phone] Gail Wick, ELEUTERIO MCT Mobile Cardiac Telemetry Event Monitor, CTA Heart and Coronary Arteries W Morphology when Performed, MRI Cardiac M&F WO Contrast 12/25/2024 2:30 PM CDT Ancillary Procedure [place] [address] [place] [phone] Palpitations 12/25/2024 1:30 PM CDT Office Visit [place] [address] [place] [phone] Marylou Ni NP Precordial pain (Primary Dx); Chest pain on breathing; Palpitations; Hypertension, unspecified type 12/24/2024 Telephone [place] [address] [place] [phone] Cristian Auguste MD from Last 3 Months [...] on file Legal 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 Gender Identity Female 09/20/2024 5:00 PM COUNTY SUPERVISOR Sexual Orientation Straight 09/20/2024 5: 00 PM COUNTY SUPERVISOR Last Filed Vital Signs Vital Sign Reading [...] rate 9 < OR = 20 mm/h [facility] Blood 01/10/2025 2:01 PM CDT 01/10/2025 2:01 PM CDT Cristian Auguste MD LAB BLOOD ORDERABLES Final Resul t [facility] [address] [place] [address] * (ABNORMAL) CRP (cardiac risk) (01/10/2025 2:01 [...] MD LAB BLOOD ORDERABLES Final Resul t [facility] [address] [place] [address] * [facility]CT Mobile Cardiac Telemetry Event Monitor (12/25/2024 2:08 PM CDT) Anatomical Region Laterality Modality Electrocardiogra phy Narrative 01/02/2025 3:30 PM CDT AMBULATORY SAFETY AIDE REPORT Patient Name: Africa Jenkins Date of [...] was used to complete this document, therefore, cloth colors examiner variances may occur. Jayden Holliday MD, [facility] 01/02/25 us Marylou Ni HAT MENDER CV CARDIAC SERVICES PROCEDUR ES Final Result from Last 3 Months Insurance [facility] [place] [id number] [place] [id number] Care Teams Contact Lens Inspector Relationship Specialty Start Date End Date Arabella Ashley PA [address] [place] [id number] PCP - General Physician Rug Dyer Helper 09/18/24
--- OUTSIDE RECORDS SUMMARY | 2025-02-28 16:10 | XMS_ITS | Clinical Summary ---
Author Organization [facility] [address] [facility] [address] [place] [address] Care Team Providers Care Cryptoanalysis Teacher Name Role Phone Arabella Ashley Primary Care [...] Description 02/19/2025 10:30 AM CDT Office Visit [facility] Cardiology [address] [place] [address] [place] [phone] Cristian Auguste MD Palpitations (Primary Dx) 02/12/2025 Telephone [facility] Cardiology [address] [place] [address] [place] [phone] Cristian Auguste MD 02/06/2025 9:27 AM CDT - 02/06/2025 11:59 PM CDT Hospital Encounter [facility] [address] [place] [address] Precordial pain; Chest pain on breathing Discharge Disposition: Discharge to home or self care 02/06/2025 Telephone [place] [address] [place] [phone] Marylou Ni NP 01/30/2025 9:34 AM CDT - 01/30/2025 11:59 PM CDT Hospital Encounter [facility] [address] [place] [address] Precordial pain; Chest pain on breathing Discharge Disposition: Discharge to home or self care 01/21/2025 Telephone [facility] Cardiology [address] [place] [address] [place] [phone] Cristian Auguste MD 01/10/2025 Orders Only [facility] Cardiology [address] [facility] [address] [place] [phone] Cristian Auguste MD Pericarditis (Primary Dx) 01/10/2025 Telephone [facility] Cardiology [address] [place] [address] [place] [phone] Cristian Auguste MD 01/03/2025 Results Follow-Up [facility] Cardiology [address] [place] [address] [place] [phone] Delano, Gail N., RN [facility] Mobile Cardiac Telemetry Event Monitor, CTA Heart and Coronary Arteries W Morphology when Performed, MRI Cardiac M&F WO Contrast 12/25/2024 2:30 PM CDT Ancillary Procedure [facility] Cardiology [address] [place] [address] [address] [place] [phone] Palpitations 12/25/2024 1:30 PM CDT Office Visit [place] [address] [place] [phone] Marylou Ni NP Precordial pain (Primary Dx); Chest pain on breathing; Palpitations; Hypertension, unspecified type 12/24/[address] [place] [phone] Cristian Auguste MD from Last 3 Months Medical History Medical History Date Comments Hyperlipidemia Family History Relation Name Status Comments Father Alive Mother Alive Social History Tobacco Use Types Packs/Day Years Used Date Smoking Tobacco: Former Cigarettes Tobacco Cessation:Counseling Given: Not Answered Comments Unknown Sex and Gender Information Value Date Recorded Sex Assigned at Not on file Legal Sex Female 3:13 PM BALL TRUING MACHINE OPERATOR Gender Identity Female 09/20/2024 5:00 PM BALL TRUING MACHINE OPERATOR Sexual Orientation Straight 09/20/2024 5: 00 PM BALL TRUING MACHINE OPERATOR Obstetrics History Last Filed Vital Signs Vital [...] by: Tonya Wright M.D. Marylou Fang Raine WASTEWATER ANALYST IMG MRI PROCEDURES Final Res ult * [...] signed by: Sim Rolle M.D. Marylou Ni WASTEWATER ANALYST IMG CT PROCEDURES Final Resu lt * Erythrocyte sedimentation rate (01/10/2025 2:01 PM CDT) Erythrocyte sedimentation rate 9 < OR = 20 mm/h [facility] Blood 01/10/2025 2:01 PM CDT 01/10/2025 2:01 PM CDT Cristian Auguste MD LAB BLOOD ORDERABLES Final Resul t Performing Organization Address [facility] de Phone Number [facility] [address] [place] [address] * (ABNORMAL) CRP (cardiac risk) (01/10/2025 2:01 [...] for Disease Control and Prevention and the [place] [employer]. Circulation 2003; 107(3): 499-511. 01/10/2025 2:01 PM CDT 01/10/2025 2:01 PM CDT Cristian Auguste MD LAB BLOOD ORDERABLES Final Resul t Performing Organization Address [facility] Co de Phone Number [facility] [address] [place] [address] * M[facility] Mobile Cardiac Telemetry Event Monitor (12/25/2024 2:08 PM CDT) Anatomical Region Laterality Modality Electrocardiogra phy Narrative 01/02/2025 3:30 PM CDT AMBULATORY AUTHORIZATION COORDINATOR REPORT Patient Name: Africa Jenkins Date of : 1980 Requesting Physician: Marylou Raine, WASTEWATER ANALYST Date of interpretation: 01/02/25 Type of monitor [...] was used to complete this document, therefore, phone banker variances may occur. Jayden Holliday MD, [facility] 01/02/25 Marylou Ni WASTEWATER ANALYST CV CARDIAC SERVICES PROCEDUR ES Final Result from Last 3 Months Insurance [facility] [place] [id number] [place] [phone] Care Teams Cryptoanalysis Teacher Relationship Specialty Start Date End Date Arabella Ashley PA [address] [place] [id number] PCP - General Physician Software Test Automation Engineer 09/18/24
--- OUTSIDE RECORDS SUMMARY | 2025-02-28 16:10 | XMS_ITS | Encounter Summary ---
Author Organization [facility] Healthcare Address [address] [place] [address] Care Team Providers Care Motor Runner Name Role Phone Arabella Ashley Primary Care Pr ovider Encounter Details Date Type Department Care Team (Late st Contact Info) Description 01/03/2025 Results Follow-Up [facility] Cardiology [address] [place] [phone] Gail Wick, RN MCT Mobile Cardiac Telemetry Event Monitor, CTA Heart and Coronary Arteries W Morphology when Performed, MRI Cardiac M&F WO Contrast Social History Tobacco Use Types Packs/Day Years Used Date Smoking Tobacco: Former Cigarettes Comments Unknown Sex and Gender Information Value Date Recorded Sex Assigned at Not on file Legal Sex Female 3:13 PM HEALTH POLICY MANAGER Gender Identity Female 09/20/2024 5:00 PM HEALTH POLICY MANAGER Sexual Orientation Straight 09/20/2024 5: 00 PM HEALTH POLICY MANAGER documented as of this encounter Plan of Treatment Not on file documented as of this encounter Visit Diagnoses Not on filedocumented in this encounter Care Teams Motor Runner Relationship Specialty Start Date End Date Arabella Ashley PA [address] [place] [address] PCP - General Physician Community Development Director 09/18/24 documented as of this encounter
[2025-02-28 16:14] LABS: Troponin I < 0.012 ng/mL (0.000-0.034)
--- NOTE | 2025-02-28 16:26 | PC.NURSE ---
patient had an episode of 190-200 bpm tachycardia, upon entering the room the patient dropped down to the 90s and stated that she feels great now
[2025-02-28] MEDS: dilTIAZem HCL 30 MG TABLET PO (18:17)
--- NOTE | 2025-02-28 18:39 | ECG_ITS ---
Test Date: 2025-02-28 18:47:54 Measurements Intervals Turner Rate: 92 P: 50 SC: 138 QRS: 35 QRSD: 92 T: 27 QT: 345 QTc: 427 Interpretive Statements SINUS RHYTHM NORMAL ECG Compared to ECG 02/28/2025 15:28:33 HEART RATE HAS DECREASED Electronically Signed On 02-28-2025 20:24:57 CDT by Mekhi Swanson D.O.
[2025-02-28 19:03] LABS: Troponin I < 0.012 ng/mL (0.000-0.034)
[2025-02-28 21:59] LABS: Troponin I < 0.012 ng/mL (0.000-0.034)
--- NOTE | 2025-02-28 22:51 | P.HP_ITS ---
H&P: HPI History of Present Illness Date/Time: 02/28/25 22:51 Chief Complaint: Tachycardia Narrative: 44-year-old female who sees Dr. Molina good [facility] who has been dealing with tachycardia of unknown etiology for the past year. She states that she has had a long cardiac workup done with no known cause. She has not been started on any medications for it. She states at home she was having good not stressful day 1 also needs she felt palpitations she checked her heart rate and was 200. She states that normally it is self-limiting however a 1 slow down so she presented to the hospital. In the ED she had 3 episodes of SVT. She was started on p.o. diltiazem with a Cardiology consult. Review of Systems Review of Systems: 12 systems were reviewed and are negativ e except for as per HPI. [facility] Past Medical History Medical History (Updated 02/28/25 @ 17:57 by Gee Rivero APRN) Positive colorectal cancer screening using Cologuard test GERD (gastroesophageal reflux disease) History of smoking Over weight Menorrhagia No active medical problems Family History Family History (Updated 02/28/25 @ 15:57 by Gee Rivero APRN) Father Atrial fibrillation Sibling Tachycardia Social History Social History (Updated 07/27/23 @ 10:40 by Radha Ayers MA) Years smoked: 8 Smoking status: Former smoker Tobacco type: cigarettes Smoking end date: 09/12/07 Alcohol intake: never Substance use: never Substance use type: does not use Lack of Transportation: No Lack of Food: Never True Current Housing: I Have Housing Concerned About Future Housing: No Difficulty Paying Gas/Electric Bills: No Difficulty Paying for Meds: No Currently Unemployed: YES Education: Master's Degree or Higher Difficulty w/ Childcare or Family Care: No Living arrangements: with family Occupation/Education: unemployed Gender identity (if verbalized by the patient): Female Sexual Orientation (if Verbalized by the Patient): Straight or Heterosexual Spiritual care concerns: No Meds Home Medications and Allergies Home Medications ?Medication ?Instructions ?Recorded ?Confirmed ?Type ascorbic acid (vitamin C) 500 mg 500 mg PO DAILY 04/14/22 10/23/24 History tablet (Vitamin C) zinc acetate 25 mg (zinc) capsule 25 mg PO DAILY 04/14/22 10/23/24 History omeprazole 20 mg capsule,delayed 20 mg PO DAILY 10/23/24 10/23/24 History release Allergies Allergy/AdvReac Type Severity Reaction Status Date / Time Penicillins Allergy Mild Hives Verified 10/23/24 10:25 guaifenesin Allergy Palpitation Verified 10/23/24 10:25 s Vital Signs Vital Signs - 24 hr 02/28/25 15:26 02/28/25 15:27 02/28/25 15:30 Temperature 98 F Pulse Rate 100 125 H 113 H Respiratory Rate 16 13 16 Blood Pressure 152/101 H 131/102 H Pulse Oximetry 99 99 98 Oxygen Delivery 02/28/25 15:30 02/28/25 15:31 02/28/25 15:35 Temperature Pulse Rate 114 H 116 H Respiratory Rate 13 14 Blood Pressure 131/102 H Pulse Oximetry 100 100 97 Oxygen Delivery Room Air 02/28/25 15:45 02/28/25 15:58 02/28/25 16:00 Temperature Pulse Rate 114 H 190 H 190 H Respiratory Rate 11 L 29 H 22 H Blood Pressure 133/109 H Pulse Oximetry 98 100 99 Oxygen Delivery 02/28/25 16:15 02/28/25 16:16 02/28/25 16:30 Temperature Pulse Rate 117 H 117 H 116 H Respiratory Rate 22 H 17 15 Blood Pressure 130/98 H 120/88 Pulse Oximetry 98 97 98 Oxygen Delivery 02/28/25 16:31 02/28/25 16:45 02/28/25 16:46 Temperature Pulse Rate 107 H 108 H 107 H Respiratory Rate 17 15 34 H Blood Pressure 117/95 H Pulse Oximetry 98 97 Oxygen Delivery 02/28/25 17:00 02/28/25 17:01 02/28/25 17:15 Temperature Pulse Rate 105 H 113 H 101 H Respiratory Rate 18 9 L 15 Blood Pressure 120/93 H 133/102 H Pulse Oximetry 98 99 99 Oxygen Delivery 02/28/25 17:16 02/28/25 17:30 02/28/25 17:31 Temperature Pulse Rate 107 H 109 H 106 H Respiratory Rate 12 17 18 Blood Pressure 118/100 H Pulse Oximetry 99 98 98 Oxygen Delivery 02/28/25 17:45 02/28/25 17:46 02/28/25 18:00 Temperature Pulse Rate 93 94 101 H Respiratory Rate 12 20 18 Blood Pressure 114/91 H 127/101 H Pulse Oximetry 99 99 99 Oxygen Delivery 02/28/25 18:01 02/28/25 18:15 02/28/25 18:16 Temperature Pulse Rate 111 H 98 94 Respiratory Rate 21 H 17 22 H Blood Pressure 134/105 H Pulse Oximetry 100 99 99 Oxygen Delivery 02/28/25 18:30 02/28/25 19:00 02/28/25 19:13 Temperature Pulse Rate 97 98 96 Respiratory Rate 22 H 20 Blood Pressure 134/95 H Pulse Oximetry 100 98 Oxygen Delivery 02/28/25 20:49 Temperature Pulse Rate 88 Respiratory Rate 17 Blood Pressure 140/99 H Pulse Oximetry 100 Oxygen Delivery Exam Narrative: General: well appearing, appears stated age. HEENT: normocephalic, atraumatic. Mucous membranes moist. EOMI, PERRLA, bilateral sclera anicteric, no conjunctival injection. Neck supple without JVD, lymphadenopathy, or bruit. Respiratory: clear to ascultation bilaterally. No rales/rhonic/wheezes. Cardiovascular: Regular rate and rhythm, normal S1-S2 upon ascultation. No murmurs, rubs, or clicks. PMI is nondisplaced, capillary refill less than 3 second. Abdomen: Soft, round, no pulsatile masses, nondistended and nontender. No rebou nd, no guarding. No CVA tenderness, no hepatosplenomegaly. Bowel sounds present to all four quadrants. No high pitch or tinkling sounds, resonant to percussion. Extremities: No cyanosis, clubbing, or edema present. Pulses are palpable 2/2. Active ROM to all four extremities. Neuro: Alert and orientated x 4. PERRLA. Cranial nerves 2-12 intact without focal deficit. Skin: Warm, dry, and intact, without rash, erythema, or lesion. Psych: pleasant, cooperative, normal speech, normal affect, no hallucinations, no dysarthia H&P: Results Labs Labs: Short CBC 02/28/25 Range/Units 15:42 WBC 7.8 (4.5-10.0) K/mm3 Hgb 13.6 (12.0-15.0) g/dL Hct 40.6 (37.0-47.0) % Plt Count 288 (150-375) k/mm3 [facility] 02/28/25 15:42 Sodium 138 Potassium 3.5 Chloride 105 Carbon Dioxide 21 L BUN 17 D Creatinine 1.04 H Glucose 107 Calcium 9.4 Cardiac Enzymes 02/28/25 02/28/25 02/28/25 Range/Units 15:42 18:32 21:29 Troponin I < 0.012 < 0.012 < 0.012 (0.000-0.034) ng/mL Liver Function 02/28/25 Range/Units 15:42 Total Bilirubin 0.7 (0.2-1.3) mg/dL AST 31 (14-36) U/L ALT 30 (6-35) U/L Alkaline Phosphatase 77 (38-126) U/L Albumin 4.5 (3.5-5.1) g/dL Assessment and Plan Assessment and plan (1) NSVT (nonsustained ventricular tachycardia): Code(s): I47.29 - Other ventricular tachycardia Status: Acute Assessment and Plan: Cardiology consulted Telemetry monitoring Records requested from [facility] Diltiazem q.6 Okay for diet Quality VTE Prophylaxis VTE prophylaxis: mechanical ordered Hospitalist MIPS Advance Care Plan I have confirmed that the patient's Advanced Care Plan is present, code status is documented, or surrogate decision maker is listed in patient medical record.: Yes Medication Reconciliation I have utilized all available resources to obtain, update and review the patients current medications (includes all prescriptions, OTC, herbals, cannabis, and nutritional supplements).: Yes
--- NOTE | 2025-02-28 23:05 | ADMGEN ---
This patient, Africa Jenkins, was admitted to Medical Room 342-01. Patient/family oriented to hospital policies and general routines including ID bracelet, bed and alarms, visiting hours, pain management, procedures, bathroom and other care routines, personal items, smoking policy, room service/diet, and visiting hours. Information on how to activate the Rapid Response Team has been discussed. Patient/Family are encouraged to report perceived risks to care and to ask questions if they do not understand what they are told or what they should do.
[2025-03-01] VITALS (11 sets, daily range): BP systolic 106–141; BP diastolic 83–93; PULSE 71–185; RESP 16–18; TEMP 36.3–36.9; O2SAT 97–100
[2025-03-01] MEDS: dilTIAZem HCL 30 MG TABLET PO ×4 (00:22→17:17)
[2025-03-01] MEDS: METOPROLOL TARTRATE INJ 5 MG/5 ML VIAL (00:34)
--- NOTE | 2025-03-01 07:20 | P.CONCA_ITS ---
Assessment and Plan Assessment and plan (1) SVT (supraventricular tachycardia): Code(s): I47.10 - Supraventricular tachycardia, unspecified Status: Acute Assessment and Plan: -telemetry shows SVT between 12 to 12:30 a.m. this morning with rates in the 130s 150s range; she was moving in the bed at that time. Since then she is in sinus rhythm without any SVT recurrences, heart rates are controlled -TTE in 2023 showed normal LVEF of 60-65% and no significant valvular pathology. Since this TTE was done less than a year ago no indication to repeat another TTE at this admission -stress test in 2023 was negative -electrolytes are within normal limits. Potassium at the lower limit of normal at 3.5. Replace to keep potassium greater than 4 and magnesium greater than 2 -check TSH, free T3 and T4 -monitor on telemetry -continue Cardizem 30 mg q.6 hours. Can switch this to long-acting form and if blood pressure allows increased dose to 180 mg q.day -recommend EP consult as outpatient to discuss SVT ablation -30 day event monitor at discharge -follow-up with cardiology in 1 month post discharge (2) Hypertension: Code(s): I10 - Essential (primary) hypertension Status: Acute Assessment and Plan: -this is a new diagnosis for and she is not on any antihypertensive medications as outpatient -continue Cardizem 30 mg q.6 hours. If blood pressure allows increased dose of Cardizem to 180 mg q.day. This will help with both rate control as well as blood pressure -recommend target blood pressure of less than 120/80 History of Present Illness History of Present Illness Consult date/time: 03/01/25 07:20 Reason For Visit: NSVT Narrative: 44-year-old female with history of SVT, smoking, GERD, obesity presents with chief complaint of racing heart/palpitations, shortness of breath, chest discomfort, dizziness. Patient states that she was diagnosed with SVT in May of 2024. At that time she had a stress test that was negative and a TTE that showed normal LVEF without any significant valvular pathology. Since the diagnosis of SVT, she has had occasional recurrences of SVT with rates up to the 170s. She has a monitor which shows heart rate and blood pressure. She states that these episodes may be related to histamine. When she has these episodes she feels a racing heart, palpitations, dizziness, shortness of breath, and chest discomfort. These episodes usually last about a minute and resolve on their own. However over the past 3 days she is having episodes with rates up to the 200s and prior to admission the episode lasted for 15 minutes which prompted her to come to the ER to get further evaluation. In the ER her rates were in the 200s. She was given IV metoprolol and p.o. diltiazem. She is on diltiazem 30 mg q.6 hours. She does not drink energy drinks or excess coffee. She reports family history of heart problems with sister having tachycardia and hypertension, and father having atrial fibrillation. She also reports that her blood pressure has been running high with SBP in the 150s to 160s and the BP in the 100s. No recent weight gain, leg swelling, presyncope, syncope, orthopnea, PND. Cardiology is consulted for further recommendation. Patient is in sinus rhythm presently and denies any chest pain, palpitations, dizziness, lightheadedness, presyncope, syncope, leg swelling, recent weight gain, orthopnea, PND headache, fever, chills, nausea, emesis, abdominal pain at this time. Workup: Potassium: 3.5 Creatinine: 1.04 Troponin: Negative Thyroid panel: Pending EKG: Sinus tachycardia, rate 110 Repeat EKG: Sinus rhythm Prior cardiac workup: Stress test 06/2024:Summary 1. 1. Negative Gee exercise stress test for ischemic ST changes by ECG criteria. 2. 2. Good functional capacity, achieving 10 METs of workload. 3. 3. Appropriate HR response to exercise. 4. 4. Appropriate HR recovery at 1 minute post exercise. 5. 5. No imaging with stress testing. 6. 6. Patient informed of the above results. TTE 06/2024: LVEF normal 60-65%, no significant valvular pathology Review of Systems 2 Review of Systems: Complete review of systems performed and negative other than those mentioned HPI [facility] Past Medical History Medical History (Updated 03/01/25 @ 09:06 by Eliana Christensen MD) Positive colorectal cancer screening using Cologuard test GERD (gastroesophageal reflux disease) History of smoking Over weight Menorrhagia No active medical problems Family History Family History Father Atrial fibrillation Sibling Tachycardia Social History Social History (Updated 07/27/23 @ 10:40 by Radha Ayers MA) Years smoked: 8 Smoking status: Former smoker Tobacco type: cigarettes Alcohol intake: never Substance use: never Substance use type: does not use Do You Feel Safe in your Home?: Yes Lack of Transportation: YES Lack of Food: Never True Current Housing: I Have Housing Concerned About Future Housing: No Difficulty Paying Gas/Electric Bills: No Difficulty Paying for Meds: No Currently Unemployed: No Education: Master's Degree or Higher Difficulty w/ Childcare or Family Care: No Living arrangements: with family Occupation/Education: unemployed Gender identity (if verbalized by the patient): Female Sexual Orientation (if Verbalized by the Patient): Straight or Heterosexual Spiritual care concerns: No Meds Home Medications and Allergies Home Medications ?Medication ?Instructions ?Recorded ?Confirmed ?Type ascorbic acid (vitamin C) 500 mg 500 mg PO DAILY 04/14/22 02/28/25 History tablet (Vitamin C) zinc acetate 25 mg (zinc) capsule 15 mg PO DAILY 04/14/22 02/28/25 History famotidine 20 mg tablet (Pepcid) 10 mg PO BID 02/28/25 02/28/25 History Allergies Allergy/AdvReac Type Severity Reaction Status Date / Time Penicillins Allergy Mild Hives Verified 10/23/24 10:25 [email or web address] Allergy Palpitation Verified 10/23/24 10:25 s Vital Signs Vital Signs - 24 hr 02/28/25 15:26 02/28/25 15:27 02/28/25 15:30 Temperature 36.6 C Pulse Rate 100 125 H 113 H Respiratory Rate 16 13 16 Blood Pressure 152/101 H 131/102 H Pulse Oximetry 99 99 98 Oxygen Delivery 02/28/25 15:30 02/28/25 15:31 02/28/25 15:35 Temperature Pulse Rate 114 H 116 H Respiratory Rate 13 14 Blood Pressure 131/102 H Pulse Oximetry 100 100 97 Oxygen Delivery Room Air 02/28/25 15:45 02/28/25 15:58 02/28/25 16:00 Temperature Pulse Rate 114 H 190 H 190 H Respiratory Rate 11 L 29 H 22 H Blood Pressure 133/109 H Pulse Oximetry 98 100 99 Oxygen Delivery 02/28/25 16:15 02/28/25 16:16 02/28/25 16:30 Temperature Pulse Rate 117 H 117 H 116 H Respiratory Rate 22 H 17 15 Blood Pressure 130/98 H 120/88 Pulse Oximetry 98 97 98 Oxygen Delivery 02/28/25 16:31 02/28/25 16:45 02/28/25 16:46 Temperature Pulse Rate 107 H 108 H 107 H Respiratory Rate 17 15 34 H Blood Pressure 117/95 H Pulse Oximetry 98 97 Oxygen Delivery 02/28/25 17:00 02/28/25 17:01 02/28/25 17:15 Temperature Pulse Rate 105 H 113 H 101 H Respiratory Rate 18 9 L 15 Blood Pressure 120/93 H 133/102 H Pulse Oximetry 98 99 99 Oxygen Delivery 02/28/25 17:16 02/28/25 17:30 02/28/25 17:31 Temperature Pulse Rate 107 H 109 H 106 H Respiratory Rate 12 17 18 Blood Pressure 118/100 H Pulse Oximetry 99 98 98 Oxygen Delivery 02/28/25 17:45 02/28/25 17:46 02/28/25 18:00 Temperature Pulse Rate 93 94 101 H Respiratory Rate 12 20 18 Blood Pressure 114/91 H 127/101 H Pulse Oximetry 99 99 99 Oxygen Delivery 02/28/25 18:01 02/28/25 18:15 02/28/25 18:16 Temperature Pulse Rate 111 H 98 94 Respiratory Rate 21 H 17 22 H Blood Pressure 134/105 H Pulse Oximetry 100 99 99 Oxygen Delivery 02/28/25 18:30 02/28/25 19:00 02/28/25 19:13 Temperature Pulse Rate 97 98 96 Respiratory Rate 22 H 20 Blood Pressure 134/95 H Pulse Oximetry 100 98 Oxygen Delivery 02/28/25 20:49 02/28/25 23:10 03/01/25 00:17 Temperature 36.6 C Pulse Rate 88 84 185 H Respiratory Rate 17 16 Blood Pressure 140/99 H 126/103 H Pulse Oximetry 100 99 Oxygen Delivery 03/01/25 00:34 03/01/25 04:00 03/01/25 06:00 Temperature 36.9 C Pulse Rate 179 H 71 102 H Respiratory Rate 16 Blood Pressure 141/93 H Pulse Oximetry 100 Oxygen Delivery Exam 2 Narrative: General: Alert oriented x3, no acute distress Neck: Supple, no JVD Chest: Bilaterally clear to auscultation, no rales or rhonchi Cardiac: S1, S2 +, regular rate, regular rhythm, no murmurs or rubs Extremities: No pedal edema, no skin rash Neurologic: Alert and oriented x3, no focal neurological deficits Results Labs and Meds 02/28/25 15:42 02/28/25 15:42 Lab results: Cardiac Enzymes 02/28/25 02/28/25 02/28/25 Range/Units 15:42 18:32 21:29 AST 31 (14-36) U/L Troponin I < 0.012 < 0.012 < 0.012 (0.000-0.034) ng/mL Coagulation 02/28/25 Range/Units 15:42 PT 13.7 (11.1-14.7) Seconds APTT 28.1 (22.3-36.8) Seconds CBC 02/28/25 Range/Units 15:42 WBC 7.8 (4.5-10.0) K/mm3 RBC 4.64 (4.2-5.4) M/mm3 Hgb 13.6 (12.0-15.0) g/dL Hct 40.6 (37.0-47.0) % Plt Count 288 (150-375) k/mm3 Lymph # (Auto) 1.36 (0.9-3.2) K/mm3 [place] # (Auto) 0.5 (0.1-0.6) K/mm3 Eos # (Auto) 0.0 (0-0.3) K/mm3 Baso # (Auto) 0.0 (0.0-0.1) K/mm3 Comprehensive Metabolic Panel 02/28/25 Range/Units 15:42 Sodium 138 (137-145) mmol/L Potassium 3.5 (3.4-5.0) mmol/L Chloride 105 (98-107) mmol/L Carbon Dioxide 21 L (22-30) mmol/L BUN 17 D (7-17) mg/dL Creatinine 1.04 H (0.7-1.0) mg/dL Glucose 107 (65-110) mg/dL Calcium 9.4 (8.4-10.2) mg/dL AST 31 (14-36) U/L ALT 30 (6-35) U/L Alkaline Phosphatase 77 (38-126) U/L Total Protein 7.9 (6.3-8.2) g/dL Albumin 4.5 (3.5-5.1) g/dL Intake and Output 02/28/25 02/28/25 03/01/25 15:59 23:59 07:59 Intake Total 400 Balance 400 Intake: Oral 400 Other: # Unmeasured Voids 1
[2025-03-01 10:43] LABS: T4 Thyroxine 7.75 ug/dL (5.53-11.0)
[2025-03-01 10:57] LABS: Total Triiodothyronine (T3) 1.07 NG/ML (0.82-1.58)
--- NOTE | 2025-03-01 15:36 | P.PNIM_ITS ---
Progress Note: A&P Assessment and Plan (1) NSVT (nonsustained ventricular tachycardia): Code(s): I47.29 - Other ventricular tachycardia Status: Acute Assessment and Plan: Cardiology on board Telemetry monitoring Records requested from [facility] Diltiazem q.6 Okay for diet event monitor at time of discharge Ep as outpatient replace electrolyte as needed Subjective Date/time seen: 03/01/25 15:36 Interval history: per HPI: 44-year-old female who sees Dr. Molina good [facility] who has been dealing with tachycardia of unknown etiology for the past year. She states that she has had a long cardiac workup done with no known cause. She has not been started on any medications for it. She states at home she was having good not stressful day 1 also needs she felt palpitations she checked her heart rate and was 200. She states that normally it is self-limiting however a 1 slow down so she presented to the hospital. In the ED she had 3 episodes of SVT. She was started on p.o. diltiazem with a Cardiology consult 03/01/25 Patient was seen and examined at bedside. She continued to have episode of tachycardia. Cardiology team on board, recommended cardiazem. Patient need event monitor at time of discharge and follow with cardiology and EP as outpatient Review of Systems Review of Systems: 12 systems were reviewed and are negativ e except for as per HPI. Exam Narrative: General: well appearing, appears stated age. HEENT: normocephalic, atraumatic. Mucous membranes moist. EOMI, PERRLA, sowmya ateral sclera anicteric, no conjunctival injection. Neck supple without JVD, lymphadenopathy, or bruit. Respiratory: clear to ascultation bilaterally. No rales/rhonic/wheezes. Cardiovascular: Regular rate and rhythm, normal S1-S2 upon ascultation. No murmurs, rubs, or clicks. PMI is nondisplaced, capillary refill less than 3 second. Abdomen: Soft, round, no pulsatile masses, nondistended and nontender. No rebound, no guarding. No CVA tenderness, no hepatosplenomegaly. Bowel sounds present to all four quadrants. No high pitch or tinkling sounds, resonant to percussion. Extremities: No cyanosis, clubbing, or edema present. Pulses are palpable 2/2. Active ROM to all four extremities. Neuro: Alert and orientated x 4. PERRLA. Cranial nerves 2-12 intact without focal deficit. Skin: Warm, dry, and intact, without rash, erythema, or lesion. Psych: pleasant, cooperative, normal speech, normal affect, no hallucinations, no dysarthia Objective Data Vital Signs Vital Signs: Vital Signs - 24 hr 02/28/25 15:45 02/28/25 15:58 02/28/25 16:00 Temperature Pulse Rate 114 H 190 H 190 H Respiratory Rate 11 L 29 H 22 H Blood Pressure 133/109 H Pulse Oximetry 98 100 99 Oxygen Delivery 02/28/25 16:15 02/28/25 16:16 02/28/25 16:30 Temperature Pulse Rate 117 H 117 H 116 H Respiratory Rate 22 H 17 15 Blood Pressure 130/98 H 120/88 Pulse Oximetry 98 97 98 Oxygen Delivery 02/28/25 16:31 02/28/25 16:45 02/28/25 16:46 Temperature Pulse Rate 107 H 108 H 107 H Respiratory Rate 17 15 34 H Blood Pressure 117/95 H Pulse Oximetry 98 97 Oxygen Delivery 02/28/25 17:00 02/28/25 17:01 02/28/25 17:15 Temperature Pulse Rate 105 H 113 H 101 H Respiratory Rate 18 9 L 15 Blood Pressure 120/93 H 133/102 H Pulse Oximetry 98 99 99 Oxygen Delivery 02/28/25 17:16 02/28/25 17:30 02/28/25 17:31 Temperature Pulse Rate 107 H 109 H 106 H Respiratory Rate 12 17 18 Blood Pressure 118/100 H Pulse Oximetry 99 98 98 Oxygen Delivery 02/28/25 17:45 02/28/25 17:46 02/28/25 18:00 Temperature Pulse Rate 93 94 101 H Respiratory Rate 12 20 18 Blood Pressure 114/91 H 127/101 H Pulse Oximetry 99 99 99 Oxygen Delivery 02/28/25 18:01 02/28/25 18:15 02/28/25 18:16 Temperature Pulse Rate 111 H 98 94 Respiratory Rate 21 H 17 22 H Blood Pressure 134/105 H Pulse Oximetry 100 99 99 Oxygen Delivery 02/28/25 18:30 02/28/25 19:00 02/28/25 19:13 Temperature Pulse Rate 97 98 96 Respiratory Rate 22 H 20 Blood Pressure 134/95 H Pulse Oximetry 100 98 Oxygen Delivery 02/28/25 20:49 02/28/25 23:10 03/01/25 00:17 Temperature 97.9 F Pulse Rate 88 84 185 H Respiratory Rate 17 16 Blood Pressure 140/99 H 126/103 H Pulse Oximetry 100 99 Oxygen Delivery 03/01/25 00:34 03/01/25 04:00 03/01/25 06:00 Temperature 98.4 F Pulse Rate 179 H 71 102 H Respiratory Rate 16 Blood Pressure 141/93 H Pulse Oximetry 100 Oxygen Delivery 03/01/25 08:00 03/01/25 08:00 03/01/25 09:03 Temperature Pulse Rate 102 H Respiratory Rate Blood Pressure Pulse Oximetry 97 Oxygen Delivery Room Air Room Air 03/01/25 12:00 Temperature Pulse Rate 83 Respiratory Rate Blood Pressure Pulse Oximetry Oxygen Delivery Intake/Output Intake/Output: Intake & Output 02/26/25 02/27/25 02/28/25 03/01/25 23:59 23:59 23:59 23:59 Intake Total 880 Balance 880 Meds/Results Medications: Active Medications Generic Name Dose Route Start Last Admin Trade Name Freq PRN Reason Stop Dose Admin Diltiazem HCl 30 mg 03/01/25 00:00 03/01/25 12:27 Diltiazem Hcl 30 Mg Tablet PO 30 mg Q6HR RANJEET Administration Radiology Results: ITS Impressions Chest X-Ray 02/28/25 16:05 IMPRESSION: No focal infiltrate or effusion. Labs Labs: Laboratory Results - last 24 hr 02/28/25 02/28/25 02/28/25 15:42 18:32 21:29 WBC 7.8 RBC 4.64 Hgb 13.6 Hct 40.6 MCV 87.5 MCH 29.3 MCHC 33.5 RDW 13.2 Plt Count 288 MPV 9.2 Immature Gran % (Auto) 0.1 Neut % (Auto) 75.1 H Lymph % (Auto) 17.4 L [place] % (Auto) 6.9 Eos % (Auto) 0.1 Baso % (Auto) 0.4 Lymph # (Auto) 1.36 [place] # (Auto) 0.5 Eos # (Auto) 0.0 Baso # (Auto) 0.0 Abs Immat Gran (auto) 0.01 Absolute Neuts (auto) 5.9 Absolute Nucleated RBC 0.000 Nucleated RBC % 0.0 PT 13.7 INR 1.0 APTT 28.1 Sodium 138 Potassium 3.5 Chloride 105 Carbon Dioxide 21 L Anion Gap 12 BUN 17 D Creatinine 1.04 H Estim Creat Clear Calc 73 Estimated GFR 57 L Glucose 107 Calcium 9.4 Total Bilirubin 0.7 AST 31 ALT 30 Alkaline Phosphatase 77 Troponin I < 0.012 < 0.012 < 0.012 Total Protein 7.9 Albumin 4.5 Lipase 275 TSH 1.620 Thyroxine (T4) 7.75 Total T3 1.07 Quality VTE Prophylaxis VTE prophylaxis: mechanical ordered
[2025-03-02] VITALS: PULSE 64
[2025-03-02] MEDS: dilTIAZem HCL 30 MG TABLET PO ×2 (00:25→05:49)
[2025-03-02 04:00] VITALS: PULSE 73
[2025-03-02 05:47] VITALS: BP 105/75; PULSE 80; RESP 18; TEMP 36.4; O2SAT 98
[2025-03-02 06:25] LABS: Hematocrit 38.6 % (37.0-47.0); Hemoglobin 12.7 g/dL (12.0-15.0); Mean Corpuscular HGB Conc 32.9 g/dl (32-36); Mean Corpuscular Hemoglobin 29.2 pg (26-34); Mean Corpuscular Volume 88.7 fl (80-100); Mean Platelet Volume 9.2 fl (7.4-10.4); Platelet Count Result 254 k/mm3 (150-375); Red Blood Count 4.35 M/mm3 (4.2-5.4); Red Cell Distribution Width 13.3 % (11.5-14.5); White Blood Count 6.6 K/mm3 (4.5-10.0)
[2025-03-02 06:41] LABS: Anion Gap 9 mmol/L (4-12); Blood Urea Nitrogen 12 mg/dL (7-17); Calcium 8.7 mg/dL (8.4-10.2); Carbon Dioxide 23 mmol/L (22-30); Chloride 105 mmol/L (98-107); Estimated CRCL calculation 93 ml/min; Estimated Glomerular Filt Rate > 60; Glucose 88 mg/dL (65-110); Potassium 3.7 mmol/L (3.4-5.0); Sodium 137 mmol/L (137-145)
[2025-03-02 08:00] VITALS: PULSE 77
[2025-03-02] MEDS: POTASSIUM CHLORIDE 20 MEQ ER TABLET 40 MEQ PO (08:45)
--- NOTE | 2025-03-02 11:40 | PM.PNCARD ---
Progress Note: A&P Assessment and Plan (1) SVT (supraventricular tachycardia): Code(s): I47.10 - Supraventricular tachycardia, unspecified Status: Acute Plan Will discontinue short-acting diltiazem and start diltiazem CD 1 120 mg daily. Okay with me to discharge the patient today Will ensure that she receives follow-up with Dr. PHAM in the office. Her response to diltiazem will be assessed and then consider ongoing medical treatment for this verses electrophysiology consultation to consider ablation of her SVT Artis Valdes MD [facility] Subjective Date/time seen: Date of service: 03/02/25 11:40 Interval history: Follow-up visit in this 44-year-old lady with: Supraventricular tachycardia admitted with symptomatic tachycardia, palpitations. Patient has been started on diltiazem and feels better today. Maintaining sinus rhythm thus far no recurrences of SVT since admission Exam Const: General: comfortable and no acute distress HENMT: Mouth: Yes moist mucous membranes Eyes: Sclera: sclerae normal Neck: Neck: supple and no JVD Cardio: Rate: regular rate Rhythm: regular rhythm GI: GI Palp: Yes Soft to palpation Auscultation: normal bowel sounds Skin: General skin exam: normal color Neuro: Other: Alert and oriented x3 Extrem: General: normal to inspection Objective Data Vital Signs Vital Signs: Vital Signs - 24 hr 03/01/25 12:00 03/01/25 14:00 03/01/25 16:00 Temperature 36.3 C L Pulse Rate 83 85 87 Respiratory Rate 18 Blood Pressure 106/86 Pulse Oximetry 99 Oxygen Delivery 03/01/25 19:47 03/01/25 19:47 03/01/25 20:01 Temperature 36.6 C Pulse Rate 96 93 Respiratory Rate 18 Blood Pressure 133/83 Pulse Oximetry 100 Oxygen Delivery Room Air 03/02/25 00:00 03/02/25 04:00 03/02/25 05:47 Temperature 36.4 C Pulse Rate 64 73 80 Respiratory Rate 18 Blood Pressure 105/75 Pulse Oximetry 98 Oxygen Delivery 03/02/25 08:00 Temperature Pulse Rate 77 Respiratory Rate Blood Pressure Pulse Oximetry Oxygen Delivery Intake/Output Intake/Output: Intake & Output 02/27/25 02/28/25 03/01/25 03/02/25 23:59 23:59 23:59 23:59 Intake Total 1600 290 Balance 1600 290 Meds/Results Medications: Active Medications Generic Name Dose Route Start Last Admin Trade Name Hectorq PRN Reason Stop Dose Admin Diltiazem HCl 120 mg 03/02/25 11:40 Diltiazem Hcl Cd 120 Mg Cap.24hr PO QAM [facility] Radiology Results: ITS Impressions Chest X-Ray 02/28/25 16:05 IMPRESSION: No focal infiltrate or effusion. Labs Labs: Laboratory Results - last 24 hr 03/02/25 05:56 WBC 6.6 RBC 4.35 Hgb 12.7 Hct 38.6 MCV 88.7 MCH 29.2 MCHC 32.9 RDW 13.3 Plt Count 254 MPV 9.2 Sodium 137 Potassium 3.7 Chloride 105 Carbon Dioxide 23 Anion Gap 9 BUN 12 D Creatinine 0.79 Estim Creat Clear Calc 93 Estimated GFR > 60 Glucose 88 Calcium 8.7
[2025-03-02 12:00] VITALS: PULSE 97
[2025-03-02] MEDS: dilTIAZem HCL CD 120 MG CAP.24HR PO (12:04)
[2025-03-02 12:08] VITALS: BP 112/86
--- NOTE | 2025-03-02 12:37 | P.DS_ITS ---
DS: Admitting Diagnosis Discharge Date 03/02/25 Admitting Diagnosis SVT DS: Discharge Diagnosis Discharge Diagnosis (1) NSVT (nonsustained ventricular tachycardia): Code(s): I47.29 - Other ventricular tachycardia Status: Acute Assessment and Plan: Cardiology on board diltiazem dose to 180 mg q.day -recommend EP consult as outpatient to discuss SVT ablation -30 day event monitor at discharge -follow-up with cardiology in 1 month post discharge DS: Summary Hospital Course Hospital Course: 44-year-old female who sees Dr. Molina good [facility] who has been dealing with tachycardia of unknown etiology for the past year. She states that she has had a long cardiac workup done with no known cause. She has not been started on any medications for it. She states at home she was having good not stressful day 1 also needs she felt palpitations she checked her heart rate and was 200. She states that normally it is self-limiting however a 1 slow down so she presented to the hospital. In the ED she had 3 episodes of SVT. She was started on p.o. diltiazem with a Cardiology consult 03/01/25 Patient was seen and examined at bedside. She continued to have episode of tachycardia. Cardiology team on board, recommended Cardizem. 03/02/25 Patient was seen and examined at bedside she is doing fine. Denies any chest pain, shortness off breath, abdominal pain, nausea vomiting. heart rate and blood pressure under control.cardiology team on board. diltiazem dose to 120 mg q.day -recommend EP consult as outpatient to discuss SVT ablation -30 day event monitor at discharge -follow-up with cardiology in 1 month post discharge Patient need event monitor at time of discharge and follow with cardiology and EP as outpatient Time Spent with Patient Time attestation: Total time spent providing and/or coordinating discharge services: Exam Narrative: General: well appearing, appears stated age. HEENT: normocephalic, atraumatic. Mucous membranes moist. EOMI, PERRLA, bilateral sclera anicteric, no conjunctival injection. Neck supple without JVD, lymphadenopathy, or bruit. Respiratory: clear to ascultation bilaterally. No rales/rhonic/wheezes. Cardiovascular: Regular rate and rhythm, normal S1-S2 upon ascultation. No murmurs, rubs, or clicks. PMI is nondisplaced, capillary refill less than 3 second. Abdomen: Soft, round, no pulsatile masses, nondistended and nontender. No rebound, no guarding. No CVA tenderness, no hepatosplenomegaly. Bowel sounds present to all four quadrants. No high pitch or tinkling sounds, resonant to percussion. Extremities: No cyanosis, clubbing, or edema present. Pulses are palpable 2/2. Active ROM to all four extremities. Neuro: Alert and orientated x 4. PERRLA. Cranial nerves 2-12 intact without focal deficit. Skin: Warm, dry, and intact, without rash, erythema, or lesion. Psych: pleasant, cooperative, normal speech, normal affect, no hallucinations, no dysarthia DS: Data Data Completed and Pending Labs on day of discharge: Labs from last 24 hours 03/02/25 05:56 WBC 6.6 RBC 4.35 Hgb 12.7 Hct 38.6 MCV 88.7 MCH 29.2 MCHC 32.9 RDW 13.3 Plt Count 254 MPV 9.2 Sodium 137 Potassium 3.7 Chloride 105 Carbon Dioxide 23 Anion Gap 9 BUN 12 D Creatinine 0.79 Estim Creat Clear Calc 93 Estimated GFR > 60 Glucose 88 Calcium 8.7 Discharge Plan Discharge Attending physician on discharge: Haylie Ronquillo Consulting providers: Macho [place] Discharging Clinician: Haylie Ronquillo Anticipated Discharge Date/Time: 03/02/25 12:49 Patient Disposition: Home Activity: as tolerated Diet: heart healthy Discharge Instructions: check your blood pressure and heart rate regularly and report to the PCP diltiazem dose to 120 mg q.day -recommend EP consult as outpatient to discuss SVT ablation -30 day event monitor at discharge -follow-up with cardiology in 1 month post discharge Patient Instructions: Antibiotic Form Patient Language: Gabonese Stand Alone Forms: General Discharge Information Follow-up/Referrals: Macho Cleveland MD [Physician] - Call for Appointment Daniel,MARK Bell [Primary Care Provider] - 1 Week Discharge Medications: New diltiazem HCl 120 mg Capsule,Extended Release 24 Hr 120 mg PO QAM Qty: 30 0RF Continued zinc acetate 25 mg (zinc) Capsule 15 mg PO DAILY ascorbic acid (vitamin C) [Vitamin C] 500 mg Tablet 500 mg PO DAILY famotidine [Pepcid] 20 mg tablet 10 mg PO BID Other Ambulatory Orders: [place] cardiac event monitor (Routine) Timeframe: 1 Month Location: Determined by Patient Ordered By: Haylie Ronquillo Date of admission: 02/28/25 18:00 Primary Care Provider: DanielArabella Admitting Provider: Brody Ko Attending physician on admission: Haylie Ronquillo Condition: Stable Quality VTE Prophylaxis VTE prophylaxis: mechanical ordered
== END 2025-03-02 14:05 | disposition home or self-care (01) ==
LOC: ANHED 17:57 → ANH3MEDSUR 20:14 → ANH3MED 22:32
PROVIDERS: Emergency Medicine; Internal Medicine Interventional Cardiology; Admitting Provider General Practice; Emergency Provider Registered Nurse Emergency; PCP Physician Assistant; Visit Provider Internal Medicine
DX: I47.10 Supraventricular tachycardia, unspecified (principal); K21.9 Gastro-esophageal reflux disease without esophagitis; Z87.891 Personal history of nicotine dependence
CPT/HCPCS: 36415; 71046; 80048; 80053; 83690; 84436; 84443; 84480; 84484; 85025; 85027; 85610; 85730; 93005; 96374; 99285; A9270; G0378